=== PATIENT | female | born 1940 | race Caucasian/White ===

== ENCOUNTER 2019-12-27 19:57 | Emergency (ER) | payer MEDICARE, OTHER, SELFPAY ==
[2019-12-27 19:59] VITALS: BP 228/80; BP 234/63; PULSE 63; PULSE 96; RESP 18; TEMP 36.4; O2SAT 96; O2SAT 99; BMI 28.1
--- NOTE | 2019-12-27 20:25 | PC.NURSE ---
CALL PLACED TO PATIENT'S SON ALEX TO OBTAIN MORE INFORMATION PATIENT IS NOT ABLE TO PROVIDE MUCH INFORMATION. LEFT MESSAGE.
--- NOTE | 2019-12-27 21:12 | ED_ITS ---
HPI - General Adult General Chief complaint: General Medical <NUBIA Franco - Last Filed: 12/28/19 00:59> Stated complaint: INSULIN ISSUES <NUBIA Franco Last Filed: 12/28/19 00:59> Time Seen by Provider: 12/27/19 21:00 <NUBIA Franco - Last Filed: 12/28/19 00:59> Source: patient, EMS and old records reviewed <NUBIA Franco Last Filed: 12/28/19 00:59> Mode of arrival: EMS <NUBIA Franco Last Filed: 12/28/19 00:59> Limitations: other ( very poor historian, confused) <NUBIA Franco Last Filed: 12/28/19 00:59> History of Present Illness HPI narrative: patient is a 79-year-old female with a past medical history of CVA, hypertension, hyperlipidemia, diabetes presents via EMS but is unsure of why she is here. she states she was just sitting around her house and she was bored, she does not remember calling 911 or why she called 911, she just said that the vortex operator made her come to the emergency room. She states she lives with her and she takes care of him because he has dementia. She claims to take her medications on a regular daily basis. Clearly she is confused and a very poor historian, she gave the nurses different stories about not taking her insulin her blood pressure medication. <NUBIA Franco Last Filed: 12/28/19 00:59> Related Data Home medications: Home Medications Medication Instructions Recorded Confirmed amlodipine 5 mg PO DAILY 12/27/19 12/27/19 atorvastatin 40 mg PO BEDTIME 12/27/19 12/27/19 clonidine 1 patch TOPICAL QWEEK 12/27/19 12/27/19 clopidogrel 75 mg PO DAILY 12/27/19 12/27/19 insulin degludec [Tresiba 45 unit SUBCUT BID 12/27/19 12/27/19 FlexTouch U-200] losartan 100 mg PO DAILY 12/27/19 12/27/19 methotrexate sodium PO 12/27/19 propranolol 120 mg PO BID 12/27/19 12/27/19 <NUBIA Franco - Last Filed: 12/28/19 00:59> Allergies/adverse reactions: Allergies Allergy/AdvReac Type Severity Reaction Status Date / Time No Known Allergies Allergy Unverified 11/19/19 16:50 [No Known Allergies*] <NUBIA Franco - Last Filed: 12/28/19 00:59> Review of Systems Review of Systems: Yes all other systems are reviewed and are negative <NUBIA Franco - Last Filed: 12/28/19 00:59> [facility] Past Medical History Attestation statement: The following information was validated with the patient. <NUBIA Franco - Last Filed: 12/28/19 00:59> Medical History: Medical History (Updated 12/28/19 @ 00:25 by NUBIA Franco) CVA (cerebral vascular accident) Diabetes Hypertension <NUBIA Franco - Last Filed: 12/28/19 00:59> Social History Social History: Social History Alcohol intake: never Smoking Status: Never smoker Use of substances other than those prescribed or required for medical reasons: No Advance Directives: No Advance Directives Information Provided: Yes <NUBIA Franco - Last Filed: 12/28/19 00:59> Physical Exam Vital Signs: Vital Signs: Vital Signs Temp Pulse Resp BP Pulse Ox 12/28/19 06:00 61 16 95 12/28/19 04:54 98.0 F 64 16 207/52 H 96 12/28/19 03:13 63 20 212/55 H 96 12/28/19 02:00 97.9 F 63 20 231/56 H 96 12/27/19 23:12 61 240/66 H 12/27/19 22:33 97.6 F 61 12 240/73 H 95 12/27/19 19:59 97.5 F 96 18 234/63 H 96 Body Mass Index 28.1 <NUBIA Franco - Last Filed: 12/28/19 00:59> Vital Signs: Vital Signs Temp Pulse Resp BP Pulse Ox 12/28/19 06:00 61 16 95 12/28/19 04:54 98.0 F 64 16 207/52 H 96 12/28/19 03:13 63 20 212/55 H 96 12/28/19 02:00 97.9 F 63 20 231/56 H 96 12/27/19 23:12 61 240/66 H 12/27/19 22:33 97.6 F 61 12 240/73 H 95 12/27/19 19:59 97.5 F 96 18 234/63 H 96 Body Mass Index 28.1 <Jaylyn Lehman DO - Last Filed: 12/28/19 07:22> Const: General: cooperative, healthy appearing, comfortable and no acute distress <NUBIA Franco - Last Filed: 12/28/19 00:59> Nutritional Appearance: obese <NUBIA Franco - Last Filed: 12/28/19 00:59> HENMT: Head: Yes normal to inspection <NUBIA Franco - Last Filed: 12/28/19 00:59> Ears: hearing grossly normal bilaterally <NUBIA Franco - Last Filed: 12/28/19 00:59> General nose exam: Normal external nose present <NUBIA Franco - Last Filed: 12/28/19 00:59> Face and sinus: Yes normal facial exam <NUBIA Franco - Last Filed: 12/28/19 00:59> Eyes: General: appearance normal, both eyes and all related structures <NUBIA Franco - Last Filed: 12/28/19 00:59> Pupils: Equal, round and reactive pupils present <NUBIA Franco - Last Filed: 12/28/19 00:59> Neck: Neck: Yes normal visual inspection, Yes full ROM and Yes supple <NUBIA Franco - Last Filed: 12/28/19 00:59> Resp: Effort & Inspection: normal respiratory effort and able to speak in complete sentences <NUBIA Franco - Last Filed: 12/28/19 00:59> Auscultation: clear to auscultation bilaterally, no crackles, no rales, no rhonchi and no wheezes <NUBIA Franco - Last Filed: 12/28/19 00:59> Cardio: Rate: regular rate <NUBIA Franco - Last Filed: 12/28/19 00:59> Rhythm: regular rhythm <NUBIA Franco - Last Filed: 12/28/19 00:59> Heart sounds: S1 normal heart sound present and S2 normal heart sound present <NUBIA Franco - Last Filed: 12/28/19 00:59> GI: Inspection: Yes normal to inspection <NUBIA Franco - Last Filed: 12/28/19 00:59> Palpation (GI): Soft to palpation and nontender <NBUIA Franco - Last Filed: 12/28/19 00:59> Auscultation: normal bowel sounds <NUBIA Franco - Last Filed: 12/28/19 00:59> Skin: General skin exam: no rashes or lesions noted <NUBIA Franco - Last Filed: 12/28/19 00:59> Neuro: Cranial nerves: Yes Equal, round and reactive pupils present <Skylar tonyNUBIA Hancock - Last Filed: 12/28/19 00:59> Extrem: General: Yes normal to inspection and Yes no pedal edema <NUBIA Franco - Last Filed: 12/28/19 00:59> Course Course Course Narrative: 79-year-old female with a past medical history of CVA, diabetes, hypertension, hyperlipidemia presents via EMS after calling 911 but not remembering why. She is a very poor historian but has no physical complaints, she only states she is hungry. her blood pressure is elevated in the 230 systolic range, her point of care is in the mid 300s. nursing staff spoke with the sons patient, James, who states his mother has been refusing care for the past 3 weeks from there daily nurse visit and he believes she does need placement as the only people live in the home are her and her who has severe dementia. The healthcare proxy is his sister Sienna Tillman [phone]. Will get basic labs and put in referral. BNP elevated, giving 40mg lasix, also gave home dose 5mg amlodipine 1am sign out to Dr Morin <NUBIA Franco - Last Filed: 12/28/19 00:59> Medical Decision Making Lab Data Result diagrams: : 12/27/19 21:59 12/27/19 21:59 <NUBIA Franco - Last Filed: 12/28/19 00:59> Labs: Lab Results 12/27/19 12/27/19 12/27/19 Range/Units 21:59 21:59 21:59 WBC 10.5 (4.8-10.8) X10*3/uL RBC 4.56 (4.20-5.50) X10*6/uL Hgb 12.8 (12.0-16.0) g/dl Hct 40.6 (37-47) % MCV 89.0 (80-98) fL MCH 28.1 (27.0-33.0) pg MCHC 31.5 (31.0-35.0) g/dl RDW 14.6 (11.0-16.0) % Plt Count 264 (160-400) X10*3/uL MPV 10.2 (9.4-12.3) fL Immature Gran % (Auto) 0.4 (0.0-0.4) % Neut % (Auto) 75.7 H (45-73) % Lymph % (Auto) 10.8 L (20-40) % Oliver % (Auto) 9.7 (2-11) % Eos % (Auto) 2.9 (0-4) % Baso % (Auto) 0.5 (0-2) % Lymph # (Auto) 1.1 L (1.2-4.9) X10*3/uL Oliver # (Auto) 1.0 (0.1-1.2) X10*3/uL Eos # (Auto) 0.3 (0.0-0.4) X10*3/uL Baso # (Auto) 0.1 (0.0-0.2) X10*3/uL Abs Immat Gran (auto) 0.04 H (0.00-0.03) X10*3/uL Absolute Neuts (auto) 7.9 (2.0-8.3) X10*3/uL Absolute Nucleated RBC 0.000 (0.0-0.012) X10*3/uL Nucleated RBC % (auto) 0.0 (0.0-0.2) /100WBC Sodium 137 (135-145) mmol/L Potassium 4.7 (3.3-5.1) mmol/l Chloride 98 (96-108) mmol/L Carbon Dioxide 31 H (22-29) mmol/L Anion Gap 13 (12-20) BUN 20 H (9-16) mg/dL Creatinine 1.53 H (0.5-1.4) mg/dL Estim Creat Clear Calc 33.2 Estimated GFR 33 POC Glucose (60-115) mg/dL Random Glucose 326 H (60-115) mg/dL Calcium 9.0 (8.4-10.2) mg/dL B-Natriuretic Peptide (<100) pg/mL Urine Color Urine Appearance Urine pH (5.0-8.0) Ur Specific [place] (1.005-1.025) Urine Protein (NEG-TRACE) MG/DL Urine Glucose (UA) (NEG) MG/DL Urine Ketones (NEG) MG/DL Urine Blood (NEG) Urine Nitrite (NEG) Ur Leukocyte Esterase (NEG) Urine RBC (0) /HPF Urine WBC (0-4) /HPF Ur Squamous Epith Cells /LPF Urine Bacteria /LPF Acetone, Qual Negative (Negative) 12/27/19 12/27/19 12/28/19 Range/Units 21:59 22:46 01:44 WBC (4.8-10.8) X10*3/uL RBC (4.20-5.50) X10*6/uL Hgb (12.0-16.0) g/dl Hct (37-47) % MCV (80-98) fL MCH (27.0-33.0) pg MCHC (31.0-35.0) g/dl RDW (11.0-16.0) % Plt Count (160-400) X10*3/uL MPV (9.4-12.3) fL Immature Gran % (Auto) (0.0-0.4) % Neut % (Auto) (45-73) % Lymph % (Auto) (20-40) % Oliver % (Auto) (2-11) % Eos % (Auto) (0-4) % Baso % (Auto) (0-2) % Lymph # (Auto) (1.2-4.9) X10*3/uL Oliver # (Auto) (0.1-1.2) X10*3/uL Eos # (Auto) (0.0-0.4) X10*3/uL Baso # (Auto) (0.0-0.2) X10*3/uL Abs Immat Gran (auto) (0.00-0.03) X10*3/uL Absolute Neuts (auto) (2.0-8.3) X10*3/uL Absolute Nucleated RBC (0.0-0.012) X10*3/uL Nucleated RBC % (auto) (0.0-0.2) /100WBC Sodium (135-145) mmol/L Potassium (3.3-5.1) mmol/l Chloride (96-108) mmol/L Carbon Dioxide (22-29) mmol/L Anion Gap (12-20) BUN (9-16) mg/dL Creatinine (0.5-1.4) mg/dL Estim Creat Clear Calc Estimated GFR POC Glucose 295 H (60-115) mg/dL Random Glucose (60-115) mg/dL Calcium (8.4-10.2) mg/dL B-Natriuretic Peptide 1264 H (<100) pg/mL Urine Color STRAW Urine Appearance CLOUDY Urine pH 7.5 (5.0-8.0) Ur Specific [place] 1.020 (1.005-1.025) Urine Protein 2+ H (NEG-TRACE) MG/DL Urine Glucose (UA) >=1000 H (NEG) MG/DL Urine Ketones NEG (NEG) MG/DL Urine Blood 1+ H (NEG) Urine Nitrite NEG (NEG) Ur Leukocyte Esterase 2+ H (NEG) Urine RBC 1-4 (0) /HPF Urine WBC TNTC H (0-4) /HPF Ur Squamous Epith Cells 1+ /LPF Urine Bacteria TRACE /LPF Acetone, Qual (Negative) <NUBIA Franco - Last Filed: 12/28/19 00:59> Lab Results 12/27/19 12/27/19 12/27/19 Range/Units 21:59 21:59 21:59 WBC 10.5 (4.8-10.8) X10*3/uL RBC 4.56 (4.20-5.50) X10*6/uL Hgb 12.8 (12.0-16.0) g/dl Hct 40.6 (37-47) % MCV 89.0 (80-98) fL MCH 28.1 (27.0-33.0) pg MCHC 31.5 (31.0-35.0) g/dl RDW 14.6 (11.0-16.0) % Plt Count 264 (160-400) X10*3/uL MPV 10.2 (9.4-12.3) fL Immature Gran % (Auto) 0.4 (0.0-0.4) % Neut % (Auto) 75.7 H (45-73) % Lymph % (Auto) 10.8 L (20-40) % Oliver % (Auto) 9.7 (2-11) % Eos % (Auto) 2.9 (0-4) % Baso % (Auto) 0.5 (0-2) % Lymph # (Auto) 1.1 L (1.2-4.9) X10*3/uL [place] # (Auto) 1.0 (0.1-1.2) X10*3/uL Eos # (Auto) 0.3 (0.0-0.4) X10*3/uL Baso # (Auto) 0.1 (0.0-0.2) X10*3/uL Abs Immat Gran (auto) 0.04 H (0.00-0.03) X10*3/uL Absolute Neuts (auto) 7.9 (2.0-8.3) X10*3/uL Absolute Nucleated RBC 0.000 (0.0-0.012) X10*3/uL Nucleated RBC % (auto) 0.0 (0.0-0.2) /100WBC Sodium 137 (135-145) mmol/L Potassium 4.7 (3.3-5.1) mmol/l Chloride 98 (96-108) mmol/L Carbon Dioxide 31 H (22-29) mmol/L Anion Gap 13 (12-20) BUN 20 H (9-16) mg/dL Creatinine 1.53 H (0.5-1.4) mg/dL Estim Creat Clear Calc 33.2 Estimated GFR 33 POC Glucose (60-115) mg/dL Random Glucose 326 H (60-115) mg/dL Calcium 9.0 (8.4-10.2) mg/dL B-Natriuretic Peptide (<100) pg/mL Urine Color Urine Appearance Urine pH (5.0-8.0) Ur Specific [place] (1.005-1.025) Urine Protein (NEG-TRACE) MG/DL Urine Glucose (UA) (NEG) MG/DL Urine Ketones (NEG) MG/DL Urine Blood (NEG) Urine Nitrite (NEG) Ur Leukocyte Esterase (NEG) Urine RBC (0) /HPF Urine WBC (0-4) /HPF Ur Squamous Epith Cells /LPF Urine Bacteria /LPF Acetone, Qual Negative (Negative) 12/27/19 12/27/19 12/28/19 Range/Units 21:59 22:46 01:44 WBC (4.8-10.8) X10*3/uL RBC (4.20-5.50) X10*6/uL Hgb (12.0-16.0) g/dl Hct (37-47) % MCV (80-98) fL MCH (27.0-33.0) pg MCHC (31.0-35.0) g/dl RDW (11.0-16.0) % Plt Count (160-400) X10*3/uL MPV (9.4-12.3) fL Immature Gran % (Auto) (0.0-0.4) % Neut % (Auto) (45-73) % Lymph % (Auto) (20-40) % [place] % (Auto) (2-11) % Eos % (Auto) (0-4) % Baso % (Auto) (0-2) % Lymph # (Auto) (1.2-4.9) X10*3/uL [place] # (Auto) (0.1-1.2) X10*3/uL Eos # (Auto) (0.0-0.4) X10*3/uL Baso # (Auto) (0.0-0.2) X10*3/uL Abs Immat Gran (auto) (0.00-0.03) X10*3/uL Absolute Neuts (auto) (2.0-8.3) X10*3/uL Absolute Nucleated RBC (0.0-0.012) X10*3/uL Nucleated RBC % (auto) (0.0-0.2) /100WBC Sodium (135-145) mmol/L Potassium (3.3-5.1) mmol/l Chloride (96-108) mmol/L Carbon Dioxide (22-29) mmol/L Anion Gap (12-20) BUN (9-16) mg/dL Creatinine (0.5-1.4) mg/dL Estim Creat Clear Calc Estimated GFR POC Glucose 295 H (60-115) mg/dL Random Glucose (60-115) mg/dL Calcium (8.4-10.2) mg/dL B-Natriuretic Peptide 1264 H (<100) pg/mL Urine Color STRAW Urine Appearance CLOUDY Urine pH 7.5 (5.0-8.0) Ur Specific [place] 1.020 (1.005-1.025) Urine Protein 2+ H (NEG-TRACE) MG/DL Urine Glucose (UA) >=1000 H (NEG) MG/DL Urine Ketones NEG (NEG) MG/DL Urine Blood 1+ H (NEG) Urine Nitrite NEG (NEG) Ur Leukocyte Esterase 2+ H (NEG) Urine RBC 1-4 (0) /HPF Urine WBC TNTC H (0-4) /HPF Ur Squamous Epith Cells 1+ /LPF Urine Bacteria TRACE /LPF Acetone, Qual (Negative) <Jaylyn Lehman DO - Last Filed: 12/28/19 07:22> Discharge Plan Discharge Clinical Impression: Memory loss, At risk for medication noncompliance Hypertension Qualifiers: Hypertension type: essential hypertension Qualified Code(s): I10 - Essential (primary) hypertension Diabetes Qualifiers: Diabetes mellitus type: type 2 Diabetes mellitus mcc insulin use: with predatory animal exterminator use Diabetes mellitus complication status: with other specified complication Qualified Code(s): E11.69 - Type 2 diabetes mellitus with other specified complication CHF exacerbation Qualifiers: Heart failure type: unspecified Qualified Code(s): I50.9 - Heart failure, unspecified <NUBIA Franco - Last Filed: 12/28/19 00:59> Prescriptions: No Action atorvastatin 40 mg tablet 40 mg PO BEDTIME RF: 0 clopidogrel 75 mg tablet 75 mg PO DAILY RF: 0 amlodipine 5 mg tablet 5 mg PO DAILY RF: 0 methotrexate sodium 2.5 mg tablet PO RF: 0 clonidine 0.3 mg/24 hr patch weekly 1 patch topical QWEEK RF: 0 propranolol 120 mg capsule,extended release 24 hr 120 mg PO BID RF: 0 losartan 100 mg tablet 100 mg PO DAILY RF: 0 Tresiba FlexTouch U-200 200 unit/mL (3 mL) insulin pen 45 unit subcut BID RF: 0 <NUBIA Franco - Last Filed: 12/28/19 00:59>
--- NOTE | 2019-12-27 21:19 | PC.NURSE ---
SPOKE WITH SON ALEX (HOME # [phone], CELL # [phone]). THIS IS THE THIRD OR FOURTH TIME THAT THIS PT HAS DECLINED, KNOWN HX OF DEMENTIA AMONG FAMILY. LIVES WITH HER , ALSO HAS DEMENTIA. NO LIVE-IN ASSISTANCE, VISITING NURSING WAS REPORTEDLY SET UP BUT THE PT CONSISTENTLY TURNS THEM AWAY AT THE DOOR. THEY HAVE NOT BEEN TENDED TO BY A VISITING NURSE IN 3 WKS. SISTER NICOLE IS HEALTH CARE PROXY [phone]. PT AMBULATES WITH WALKER AT HOME QUITE STEADILY.
--- NOTE | 2019-12-27 21:21 | ECG_ITS ---
Test Reason : WEAKNESS Blood Pressure : / mmHG Vent. Rate : 061 BPM Atrial Rate : 061 BPM P-R Int : 210 ms QRS Dur : 096 ms QT Int : 466 ms P-R-T Axes : 056 012 030 degrees QTc Int : 469 ms Sinus rhythm with 1st degree A-V block Possible Left atrial enlargement Left ventricular hypertrophy with repolarization abnormality Nonspecific ST abnormality Abnormal ECG When compared with ECG of 29-MAY-2019 14:29, [place] interval has increased ST less depressed in Inferior leads Referred By: Mar Delong Electronically Signed By:CORAZON OLSEN MD
[2019-12-27 22:04] LABS: Basophils Absolute Auto 0.1 X10*3/uL (0.0-0.2); Basophils Percent Auto 0.5 % (0-2); Eosinophils Absolute Auto 0.3 X10*3/uL (0.0-0.4); Eosinophils Percent Auto 2.9 % (0-4); Hematocrit 40.6 % (37-47); Hemoglobin 12.8 g/dl (12.0-16.0); Imm Gran Abs Auto 0.04 X10*3/uL (0.00-0.03); Imm Gran Pct Auto 0.4 % (0.0-0.4); Lymphocytes Absolute Auto 1.1 X10*3/uL (1.2-4.9); Lymphocytes Percent Auto 10.8 % (20-40); MANUAL DIFF FLAG NO; Mean Corpuscular HGB Conc 31.5 g/dl (31.0-35.0); Mean Corpuscular Hemoglobin 28.1 pg (27.0-33.0); Mean Platelet Volume 10.2 fL (9.4-12.3); Monocytes Percent Auto 9.7 % (2-11); Neutrophils Absolute Auto 7.9 X10*3/uL (2.0-8.3); Neutrophils Percent Auto 75.7 % (45-73); Platelet Count 264 X10*3/uL (160-400); Red Blood Count 4.56 X10*6/uL (4.20-5.50); Red Cell Distribution Width 14.6 % (11.0-16.0); White Blood Count 10.5 X10*3/uL (4.8-10.8)
[2019-12-27 22:20] LABS: Acetone, serum QL Negative (Negative)
[2019-12-27 22:25] LABS: Anion Gap 13 (12-20); Blood Urea Nitrogen 20 mg/dL (9-16); Carbon Dioxide 31 mmol/L (22-29); Chloride 98 mmol/L (96-108); Creatinine Clr Calc Pharmacy 33.2; Estimated Glomerular Filt Rate 33; Glucose Random 326 mg/dL (60-115); Potassium 4.7 mmol/l (3.3-5.1); Sodium 137 mmol/L (135-145)
[2019-12-27 22:33] VITALS: BP 240/73; PULSE 61; RESP 12; TEMP 36.4; O2SAT 95
[2019-12-27 22:55] LABS: Glucose, Whole Blood 295 mg/dL (60-115)
--- NOTE | 2019-12-27 22:56 | PC.NURSE ---
CALL MADE DOWN TO LAB FOR ADD-ON BNP
[2019-12-27 23:12] VITALS: BP 240/66; PULSE 61
[2019-12-27] MEDS: amLODIPine Besylate 5 MG TABLET PO (23:12)
[2019-12-27 23:27] LABS: B Type Natriuretic Peptide 1264 pg/mL (<100)
[2019-12-28] VITALS (7 sets, daily range): BP systolic 170–244; BP diastolic 52–71; PULSE 61–65; RESP 16–20; TEMP 36.5–36.7; O2SAT 95–96
[2019-12-28] MEDS: Furosemide 40 MG/4 ML VIAL IVPUSH (01:23)
[2019-12-28 01:50] LABS: Glucose Urine UA >=1000 MG/DL (NEG); Leukocyte Esterase Urine 2+ (NEG); Nitrite Urine NEG (NEG); PH 7.5 (5.0-8.0); Urine Blood 1+ (NEG); Urine Ketones NEG (NEG); Urine Protein 2+ MG/DL (NEG-TRACE)
[2019-12-28 01:51] LABS: Appearance Urine CLOUDY; Color Urine STRAW
[2019-12-28 01:58] LABS: WBC Urine TNTC /HPF (0-4)
[2019-12-28 01:59] LABS: Bacteria Urine TRACE /LPF; Squamous Epithelial Cell Urine 1+ /LPF
--- NOTE | 2019-12-28 05:15 | PC.NURSE ---
PROVIDER MD BELTRE IS AWARE OF THE BLOOD PRESSURE, NO FURTHER ORDERS AT THIS TIME.
--- NOTE | 2019-12-28 07:15 | PC.NURSE ---
PT SITTING UP AT EDGE OF BED EATING BREAKFAST. NO SOB/WENDY NOTED SPEAKS IN FULL SENTENCES.
--- NOTE | 2019-12-28 07:22 | XR_ITS ---
EXAMINATION: XR CHEST CLINICAL INFORMATION: Evaluate for edema. COMPARISON: Chest radiographs 05/29/2019 TECHNIQUE: Portable upright AP view of the chest was obtained. FINDINGS: The lungs are clear. There is no pneumothorax, vascular congestion, edema, or effusion. The heart is normal in size. The hilar and mediastinal contours are normal. No visible acute bony abnormality. XR/XR chest 1V IMPRESSION: No acute intrathoracic disease.
[2019-12-28 07:24] LABS: Glucose, Whole Blood 326 mg/dL (60-115)
[2019-12-28] MEDS: cefTRIAXone sodium 1 GM in 0.9 % Sodium Chloride 50 ML IV (08:11)
--- NOTE | 2019-12-28 10:55 | PC.NURSE ---
physical therapy (bruno) with pt at bedside.
--- NOTE | 2019-12-28 11:08 | PC.NURSE ---
PT AMB (I) GAIT STEADY WITH CANE AND PHYSICAL THERAPY IN [place].
--- NOTE | 2019-12-28 12:24 | MHC.CM.ED ---
Received case management consult overnight. Patient came to ER with insulin issues . Patient's son states patient provides care for her who has dementia. Patient has fallen at home and does not take her medication. Patient also has refused for help to come into the home. Work up essentially negative. Physical therapy eval completed. Home therapy is recommended by physical therapy. Spoke with patient's daughter/HCP, Sienna via telephone at [phone]. Explained patient would not qualify for short term rehab because she passed physical therapy. Private pay nursing home was offered. Sienna is not interested at this time. Patient's son, James lives local. Sienna lives in [place]. Sienna requested t/w speak to James. Spoke with James via telephone at [phone]. Patient has a home health aide from [facility]. Patient has not had nursing home in the past. James agreeable to referral to [facility]. Referral made via allscripts. James will be in the ER at 1pm to pick patient up. Patient, Dr Lehman and Gregg WOOTEN aware. Continue to monitor for d/c needs.
--- NOTE | 2019-12-28 13:04 | MHC.CM.ED ---
[facility] UNABLE TO ACCEPT PATIENT. REFERRAL WAS BROADCASTED. [facility] HAS ACCEPTED PT.
== END 2019-12-28 13:21 | disposition home or self-care (01) ==
PROVIDERS: Physician Assistant; Emergency Provider Emergency Medicine; PCP Nurse Practitioner Family
DX: R41.3 Other amnesia (principal); I10 Essential (primary) hypertension; E11.69 Type 2 diabetes mellitus with other specified complication; I50.9 Heart failure, unspecified; Z91.14 Patient's other noncompliance with medication regimen; Z79.899 Other long term (current) drug therapy; Z79.4 Long term (current) use of insulin
CPT/HCPCS: 36415; 71045; 80048; 81001; 82009; 82947; 83880; 85025; 87086; 93005; 96365; 96375; 97161; 99284; 99285; J1940

== ENCOUNTER 2020-01-19 11:03 | Emergency (ER) | payer MEDICARE, SELFPAY ==
[2020-01-19 11:11] VITALS: BP 208/80; PULSE 53; RESP 18; TEMP 32.7; O2SAT 94; BMI 28.3
--- NOTE | 2020-01-19 11:25 | ED_ITS ---
HPI - Altered Mental Status General Chief Complaint: General Medical Stated Complaint: UNRESPONSIVE W/LOW BS (40'S),BS 107 NOW Time Seen by Provider: 01/19/20 11:24 Source: family Mode of arrival: EMS Limitations: altered mental status History of Present Illness HPI narrative: Found unresponsive at home with glu of 40 and hypothermic. complaint: altered mental status Onset (ago): hour(s) Timing confirmed by: spouse Severity: severe Associated symptoms: syncope and weakness Treatments prior to arrival: glucose and IV fluid Related Data Home Medications Medication Instructions Recorded Confirmed amlodipine 5 mg PO DAILY 12/27/19 12/27/19 atorvastatin 40 mg PO BEDTIME 12/27/19 12/27/19 clonidine 1 patch TOPICAL QWEEK 12/27/19 12/27/19 clopidogrel 75 mg PO DAILY 12/27/19 12/27/19 insulin degludec [Tresiba 45 unit SUBCUT BID 12/27/19 12/27/19 FlexTouch U-200] losartan 100 mg PO DAILY 12/27/19 12/27/19 methotrexate sodium PO 12/27/19 propranolol 120 mg PO BID 12/27/19 12/27/19 Previous Rx's Medication Instructions Recorded cefuroxime axetil 250 mg PO BID 7 Days #14 tab 12/28/19 Allergies Allergy/AdvReac Type Severity Reaction Status Date / Time No Known Allergies Allergy Verified 01/19/20 11:43 [No Known Allergies*] Review of Systems Constitutional: Constitutional: Reports no additional constitutional complaints Eyes: Eyes: Reports no additional eye complaints ENT: Denies dizziness Cardiovascular: Cardiovascular: Reports no additional cardiovascular comp laints Respiratory: Respiratory: Reports as per HPI Gastrointestinal: Gastrointestinal: Reports no additional gastrointestinal complaints Genitourinary: Genitourinary: Reports no additional female genitourinary complaints Musculoskeletal: Musculoskeletal: Reports no additional musculoskeletal complaints Integumentary/Breasts: Skin/Breast: Denies rash Neurologic: Reports system reviewed and no additional complaints, except as documented, Denies dizziness and Denies Sensory deficit (Neuro) Psychiatric: Psychiatric: Denies anxiety [facility] Past Medical History Medical History (Updated 01/19/20 @ 15:23 by Jeff Weiss MD) CVA (cerebral vascular accident) Diabetes Hypertension Social History Social History Alcohol intake: never Smoking Status: Former smoker Use of substances other than those prescribed or required for medical reasons: No Advance Directives: No Advance Directives Information Provided: Yes Physical Exam Vital Signs: Vital Signs: Last Vital Signs Temp 94.5 F L 01/19/20 12:56 Pulse 57 01/19/20 12:56 Resp 17 01/19/20 12:56 BP 231/43 H 01/19/20 12:56 Pulse Ox 96 01/19/20 12:56 Body Mass Index 28.3 Const: Other: elderly female now awake Nutritional Appearance: average body habitus Orientation/consciousness: oriented to person Limitations: altered mental status HENMT: Head: Yes normal to inspection Ears: external ears normal General nose exam: Normal external nose present Mouth: Normal oral and palatal mucosa present and oropharynx normal Throat: Yes posterior oropharynx normal Eyes: General: appearance normal, both eyes and all related structures Neck: Other: supple Neck: Yes normal visual inspection Chest: Chest palpation & inspection: normal inspection of the chest Resp: Auscultation: clear to auscultation bilaterally Cardio: Jugular venous distension: no JVD Rate: regular rate Rhythm: reg ular rhythm Heart sounds: S1 normal heart sound present and S2 normal heart sound present GI: Inspection: Yes normal to inspection Palpation (GI): Soft to palpation, nontender and No hepatosplenomegaly present Auscultation: normal bowel sounds : General: Yes no CVA tenderness Back/Spine/Pelvis: Back: no CVA tenderness Skin: General skin exam: no rashes or lesions noted Neuro: General: oriented to person Cranial nerves: Yes CN's II-XII intact bilaterally Motor exam (neuro): 5/5 motor strength present throughout Sensory Exam: No Sensory deficit (Neuro) Extrem: General: Yes normal to inspection Psych: Appearance: grossly normal Course Course Course Narrative: patient ate, more awake, feels good, able to ambulate MDM - Altered Mental Status MDM Narrative Medical decision making narrative: weakness, loss of consciousness, hypothermia all seem related to severe hypoglycemia will dc home Lab Data Result diagrams: 01/19/20 12:06 01/19/20 12:07 Labs: Lab Results 01/19/20 01/19/20 01/19/20 Range/Units 11:10 12:05 12:06 WBC 12.2 H (4.8-10.8) X10*3/uL RBC 5.52 H D (4.20-5.50) X10*6/uL Hgb 15.6 D (12.0-16.0) g/dl Hct 48.7 H (37-47) % MCV 88.2 (80-98) fL MCH 28.3 (27.0-33.0) pg MCHC 32.0 (31.0-35.0) g/dl RDW 14.5 (11.0-16.0) % Plt Count 350 D (160-400) X10*3/uL MPV 9.2 L (9.4-12.3) fL Immature Gran % (Auto) 0.3 (0.0-0.4) % Neut % (Auto) 92.7 H (45-73) % Lymph % (Auto) 5.3 L (20-40) % [place] % (Auto) 1.1 L (2-11) % Eos % (Auto) 0.3 (0-4) % Baso % (Auto) 0.3 (0-2) % Lymph # (Auto) 0.6 L (1.2-4.9) X10*3/uL [place] # (Auto) 0.1 (0.1-1.2) X10*3/uL Eos # (Auto) 0.0 (0.0-0.4) X10*3/uL Baso # (Auto) 0.0 (0.0-0.2) X10*3/uL Abs Immat Gran (auto) 0.04 H (0.00-0.03) X10*3/uL Absolute Neuts (auto) 11.3 H (2.0-8.3) X10*3/uL Absolute Nucleated RBC 0.000 (0.0-0.012) X10*3/uL Nucleated RBC % (auto) 0.0 (0.0-0.2) /100WBC Smear Tech's Comments VERIFIED Sodium (135-145) mmol/L Potassium (3.3-5.1) mmol/l Chloride (96-108) mmol/L Carbon Dioxide (22-29) mmol/L Anion Gap (12-20) BUN (9-16) mg/dL Creatinine (0.5-1.4) mg/dL Estim Creat Clear Calc Estimated GFR POC Glucose 88 (60-115) mg/dL Random Glucose (60-115) mg/dL Calcium (8.4-10.2) mg/dL Total Bilirubin (0.0-1.0) mg/dL Direct Bilirubin (0.0-0.5) mg/dL AST (5-31) U/L ALT (0-31) U/L Alkaline Phosphatase (39-117) U/L Troponin I High Sens (<3.5-17.0) ng/L Total Protein (6.5-8.0) g/dL Albumin (3.5-5.0) g/dL Urine Color Urine Appearance Urine pH (5.0-8.0) Ur Specific Needles (1.005-1.025) Urine Protein (NEG-TRACE) MG/DL Urine Glucose (UA) (NEG) MG/DL Urine Ketones (NEG) MG/DL Urine Blood (NEG) Urine Nitrite (NEG) Ur Leukocyte Esterase (NEG) Urine RBC (0) /HPF Urine WBC (0-4) /HPF Ur Squamous Epith Cells /LPF Urine Bacteria /LPF Coronavirus (PCR) NEGATIVE (Negative) Influenza Type A (PCR) NEGATIVE (Negative) Influenza Type B (PCR) NEGATIVE (Negative) RSV RNA Qual (PCR) NEGATIVE (Negative) 01/19/20 01/19/20 01/19/20 Range/Units 12:07 12:07 12:30 WBC (4.8-10.8) X10*3/uL RBC (4.20-5.50) X10*6/uL Hgb (12.0-16.0) g/dl Hct (37-47) % MCV (80-98) fL MCH (27.0-33.0) pg MCHC (31.0-35.0) g/dl RDW (11.0-16.0) % Plt Count (160-400) X10*3/uL MPV (9.4-12.3) fL Immature Gran % (Auto) (0.0-0.4) % Neut % (Auto) (45-73) % Lymph % (Auto) (20-40) % [place] % (Auto) (2-11) % Eos % (Auto) (0-4) % Baso % (Auto) (0-2) % Lymph # (Auto) (1.2-4.9) X10*3/uL [place] # (Auto) (0.1-1.2) X10*3/uL Eos # (Auto) (0.0-0.4) X10*3/uL Baso # (Auto) (0.0-0.2) X10*3/uL Abs Immat Gran (auto) (0.00-0.03) X10*3/uL Absolute Neuts (auto) (2.0-8.3) X10*3/uL Absolute Nucleated RBC (0.0-0.012) X10*3/uL Nucleated RBC % (auto) (0.0-0.2) /100WBC Smear Tech's Comments Sodium 138 (135-145) mmol/L Potassium 5.0 (3.3-5.1) mmol/l Chloride 97 (96-108) mmol/L Carbon Dioxide 33 H (22-29) mmol/L Anion Gap 13 (12-20) BUN 44 H D (9-16) mg/dL Creatinine 1.68 H (0.5-1.4) mg/dL Estim Creat Clear Calc 27.3 Estimated GFR 29 POC Glucose (60-115) mg/dL Random Glucose 120 H D (60-115) mg/dL Calcium 9.6 D (8.4-10.2) mg/dL Total Bilirubin 0.6 (0.0-1.0) mg/dL Direct Bilirubin 0.3 (0.0-0.5) mg/dL AST 27 (5-31) U/L ALT 24 (0-31) U/L Alkaline Phosphatase 74 (39-117) U/L Troponin I High Sens 10.6 (<3.5-17.0) ng/L Total Protein 8.3 H (6.5-8.0) g/dL Albumin 3.9 (3.5-5.0) g/dL Urine Color Urine Appearance Urine pH (5.0-8.0) Ur Specific Needles (1.005-1.025) Urine Protein (NEG-TRACE) MG/DL Urine Glucose (UA) (NEG) MG/DL Urine Ketones (NEG) MG/DL Urine Blood (NEG) Urine Nitrite (NEG) Ur Leukocyte Esterase (NEG) Urine RBC (0) /HPF Urine WBC (0-4) /HPF Ur Squamous Epith Cells /LPF Urine Bacteria /LPF Coronavirus (PCR) (Negative) Influenza Type A (PCR) (Negative) Influenza Type B (PCR) (Negative) RSV RNA Qual (PCR) (Negative) 01/19/20 01/19/20 Range/Units 12:49 14:00 WBC (4.8-10.8) X10*3/uL RBC (4.20-5.50) X10*6/uL Hgb (12.0-16.0) g/dl Hct (37-47) % MCV (80-98) fL MCH (27.0-33.0) pg MCHC (31.0-35.0) g/dl RDW (11.0-16.0) % Plt Count (160-400) X10*3/uL MPV (9.4-12.3) fL Immature Gran % (Auto) (0.0-0.4) % Neut % (Auto) (45-73) % Lymph % (Auto) (20-40) % [place] % (Auto) (2-11) % Eos % (Auto) (0-4) % Baso % (Auto) (0-2) % Lymph # (Auto) (1.2-4.9) X10*3/uL [place] # (Auto) (0.1-1.2) X10*3/uL Eos # (Auto) (0.0-0.4) X10*3/uL Baso # (Auto) (0.0-0.2) X10*3/uL Abs Immat Gran (auto) (0.00-0.03) X10*3/uL Absolute Neuts (auto) (2.0-8.3) X10*3/uL Absolute Nucleated RBC (0.0-0.012) X10*3/uL Nucleated RBC % (auto) (0.0-0.2) /100WBC Smear Tech's Comments Sodium (135-145) mmol/L Potassium (3.3-5.1) mmol/l Chloride (96-108) mmol/L Carbon Dioxide (22-29) mmol/L Anion Gap (12-20) BUN (9-16) mg/dL Creatinine (0.5-1.4) mg/dL Estim Creat Clear Calc Estimated GFR POC Glucose 104 (60-115) mg/dL Random Glucose (60-115) mg/dL Calcium (8.4-10.2) mg/dL Total Bilirubin (0.0-1.0) mg/dL Direct Bilirubin (0.0-0.5) mg/dL AST (5-31) U/L ALT (0-31) U/L Alkaline Phosphatase (39-117) U/L Troponin I High Sens (<3.5-17.0) ng/L Total Protein (6.5-8.0) g/dL Albumin (3.5-5.0) g/dL Urine Color YELLOW Urine Appearance CLOUDY Urine pH 7.5 (5.0-8.0) Ur Specific Needles 1.020 (1.005-1.025) Urine Protein 3+ H (NEG-TRACE) MG/DL Urine Glucose (UA) NEG (NEG) MG/DL Urine Ketones NEG (NEG) MG/DL Urine Blood TRACE (NEG) Urine Nitrite NEG (NEG) Ur Leukocyte Esterase 1+ H (NEG) Urine RBC 0-2 (0) /HPF Urine WBC 30-49 H (0-4) /HPF Ur Squamous Epith Cells 1+ /LPF Urine Bacteria 1+ /LPF Coronavirus (PCR) (Negative) Influenza Type A (PCR) (Negative) Influenza Type B (PCR) (Negative) RSV RNA Qual (PCR) (Negative) Imaging Data Chest x-ray: Radiologist's impression: no infiltrate ECG Data ECG #1: Attestation: I personally reviewed and interpreted this ECG as follows: Interpretation: sinus rate of 50, peaked ts, no other st or twave changes Discharge Plan Discharge Clinical Impression: Hypoglycemia Diabetes Qualifiers: Diabetes mellitus type: type 2 Diabetes mellitus predatory animal exterminator insulin use: with predatory animal exterminator use Diabetes mellitus complication status: without complication Qualified Code(s): E11.9 - Type 2 diabetes mellitus without complications Prescriptions: No Action atorvastatin 40 mg tablet 40 mg PO BEDTIME RF: 0 clopidogrel 75 mg tablet 75 mg PO DAILY RF: 0 amlodipine 5 mg tablet 5 mg PO DAILY RF: 0 methotrexate sodium 2.5 mg tablet PO RF: 0 clonidine 0.3 mg/24 hr patch weekly 1 patch topical QWEEK RF: 0 propranolol 120 mg capsule,extended release 24 hr 120 mg PO BID RF: 0 losartan 100 mg tablet 100 mg PO DAILY RF: 0 Tresiba FlexTouch U-200 200 unit/mL (3 mL) insulin pen 45 unit subcut BID RF: 0 cefuroxime axetil 250 mg tablet 250 mg PO BID 7 Days Qty: 14 RF: 0 Referrals: Physician,Unknown [Primary Care Provider] - 2 days
--- NOTE | 2020-01-19 11:27 | XR_ITS ---
EXAMINATION: XR CHEST CLINICAL INFORMATION: Shortness of breath COMPARISON: 12/28/2019 TECHNIQUE: Frontal view of the chest was obtained. FINDINGS: Cardiac leads overlie the chest. The lungs are well expanded. There is no focal consolidation, edema, or effusion. Bronchial wall thickening noted. No pneumothorax. The cardiomediastinal silhouette is within normal limits. No acute osseous abnormality. XR/XR chest 1V IMPRESSION: No dense consolidation. Bronchial wall thickening can be seen with a small airways process such as asthma or atypical/viral infection.
--- NOTE | 2020-01-19 11:27 | ECG_ITS ---
Test Reason : SOB Blood Pressure : / mmHG Vent. Rate : 051 BPM Atrial Rate : 051 BPM P-R Int : 196 ms QRS Dur : 082 ms QT Int : 530 ms P-R-T Axes : 031 060 045 degrees QTc Int : 488 ms Sinus bradycardia Minimal voltage criteria for LVH, may be normal variant Nonspecific ST abnormality Abnormal ECG When compared with ECG of 27-DEC-2019 21:49, ST now depressed in Inferior leads Referred By: Jeff Weiss Electronically Signed By:CORAZON OLSEN MD
[2020-01-19 12:16] LABS: Basophils Percent Auto 0.3 % (0-2); Eosinophils Percent Auto 0.3 % (0-4); Hematocrit 48.7 % (37-47); Hemoglobin 15.6 g/dl (12.0-16.0); Imm Gran Abs Auto 0.04 X10*3/uL (0.00-0.03); Imm Gran Pct Auto 0.3 % (0.0-0.4); Lymphocytes Absolute Auto 0.6 X10*3/uL (1.2-4.9); Lymphocytes Percent Auto 5.3 % (20-40); MANUAL DIFF FLAG SCAN; Mean Corpuscular Hemoglobin 28.3 pg (27.0-33.0); Mean Corpuscular Volume 88.2 fL (80-98); Mean Platelet Volume 9.2 fL (9.4-12.3); Monocytes Absolute Auto 0.1 X10*3/uL (0.1-1.2); Monocytes Percent Auto 1.1 % (2-11); Neutrophils Absolute Auto 11.3 X10*3/uL (2.0-8.3); Neutrophils Percent Auto 92.7 % (45-73); Platelet Count 350 X10*3/uL (160-400); Red Blood Count 5.52 X10*6/uL (4.20-5.50); Red Cell Distribution Width 14.5 % (11.0-16.0); SCAN SMEAR FLAG 1; White Blood Count 12.2 X10*3/uL (4.8-10.8)
[2020-01-19 12:53] LABS: Anion Gap 13 (12-20); Blood Urea Nitrogen 44 mg/dL (9-16); Calcium 9.6 mg/dL (8.4-10.2); Carbon Dioxide 33 mmol/L (22-29); Chloride 97 mmol/L (96-108); Creatinine Clr Calc Pharmacy 27.3; Estimated Glomerular Filt Rate 29; Glucose Random 120 mg/dL (60-115); Sodium 138 mmol/L (135-145)
[2020-01-19 12:53] LABS: SLIDE REVIEW VERIFIED
[2020-01-19 12:54] LABS: Alanine Aminotransferase 24 U/L (0-31); Albumin Level 3.9 g/dL (3.5-5.0); Alkaline Phosphatase 74 U/L (39-117); Aspartate Amino Transferase 27 U/L (5-31); Bilirubin Direct 0.3 mg/dL (0.0-0.5); Bilirubin Total 0.6 mg/dL (0.0-1.0); Total Protein 8.3 g/dL (6.5-8.0)
[2020-01-19 12:56] VITALS: BP 231/43; PULSE 57; RESP 17; TEMP 34.7; O2SAT 96
[2020-01-19 13:06] LABS: Glucose, Whole Blood 104 mg/dL (60-115)
[2020-01-19 13:09] LABS: Influenza A PCR NEGATIVE (Negative); Influenza B PCR NEGATIVE (Negative); Resp Syncy Virus RNA Qual PCR NEGATIVE (Negative); SARS COV2 PCR INHOUSE NEGATIVE (Negative)
[2020-01-19 13:21] LABS: Troponin-I High Sensitivity 10.6 ng/L (<3.5-17.0)
[2020-01-19 13:49] LABS: Glucose, Whole Blood 88 mg/dL (60-115)
[2020-01-19] MEDS: 0.9 % Sodium Chloride 500 ML 999 ML IVCONT (14:15)
[2020-01-19 14:33] LABS: Glucose Urine UA NEG (NEG); Leukocyte Esterase Urine 1+ (NEG); Nitrite Urine NEG (NEG); PH 7.5 (5.0-8.0); Urine Blood TRACE (NEG); Urine Ketones NEG (NEG); Urine Protein 3+ MG/DL (NEG-TRACE)
[2020-01-19 14:35] LABS: Appearance Urine CLOUDY; Color Urine YELLOW
--- NOTE | 2020-01-19 14:58 | PC.NURSE ---
alert,nad, ate lunch, aware of care plan and has a ride when she's ready
[2020-01-19 15:02] LABS: RBC Urine 0-2 /HPF (0); WBC Urine 30-49 /HPF (0-4)
[2020-01-19 15:03] LABS: Bacteria Urine 1+ /LPF; Squamous Epithelial Cell Urine 1+ /LPF
[2020-01-19 16:00] VITALS: BP 187/62; PULSE 65; RESP 16; TEMP 36.1; O2SAT 95
--- NOTE | 2020-01-19 16:03 | PC.NURSE ---
Pt ambulated with steady gait using walker, baseline per pt. pt is aox3, skin w/p/d, vss.
[2020-01-19 17:06] LABS: Glucose, Whole Blood 125 mg/dL (60-115)
== END 2020-01-19 17:05 | disposition home or self-care (01) ==
PROVIDERS: Emergency Provider Emergency Medicine
DX: E11.649 Type 2 diabetes mellitus with hypoglycemia without coma (principal); R41.82 Altered mental status, unspecified; Z79.899 Other long term (current) drug therapy; Z20.828 Contact with and (suspected) exposure to other viral communicable diseases; Z87.891 Personal history of nicotine dependence
CPT/HCPCS: 0241U; 36415; 71045; 80048; 80076; 81001; 82947; 84484; 85025; 87040; 87086; 93005; 99284

== ENCOUNTER 2020-01-22 09:31 | Emergency (ER) | payer MEDICARE, OTHER, SELFPAY ==
[2020-01-22] VITALS (16 sets, daily range): BP systolic 114–216; BP diastolic 34–79; PULSE 51–67; RESP 16–22; TEMP 36.6; O2SAT 95–97; BMI 28.6
--- NOTE | 2020-01-22 09:34 | ECG_ITS ---
Test Reason : HYPOGYLCEMIA Blood Pressure : / mmHG Vent. Rate : 051 BPM Atrial Rate : 051 BPM P-R Int : 226 ms QRS Dur : 104 ms QT Int : 562 ms P-R-T Axes : 051 037 039 degrees QTc Int : 517 ms Sinus bradycardia with 1st degree A-V block Septal infarct , age undetermined Prolonged QT Abnormal ECG When compared with ECG of 19-JAN-2020 11:49, MA interval has increased ST now depressed in Inferior leads Lateral leads T wave amplitude has decreased in Anterolateral leads Referred By: Kavin Elena Electronically Signed By:CORAZON OLSEN MD
--- NOTE | 2020-01-22 09:34 | CT_ITS ---
EXAMINATION: CT HEAD WITHOUT CONTRAST CLINICAL INFORMATION: Acute mental status change COMPARISON: Previous head CT May 2019 TECHNIQUE: Contiguous axial imaging was performed from the skull base to vertex without intravenous administration of contrast. This CT examination was performed using dose optimization techniques as appropriate, variously including the following: *Automated exposure control *Adjustment of mA and/or kV according to patient size (this includes techniques or standardized protocols for targeted exams where dose is matched to indication/reason for exam; i.e. extremities or head) *Use of iterative reconstruction technique DLP: 647 mGy-cm FINDINGS: There is no evidence of an extra-axial collection. There is no evidence of intra-axial or extra-axial hemorrhage. The ventricles and extra-axial CSF spaces are prominent suggestive of generalized atrophy. There is nonspecific periventricular white matter disease. There is evidence of an old left posterior parietal and bilateral basal ganglia infarcts that appear unchanged. No mass, mass effect or acute infarct is seen. There is evidence of severe atherosclerotic disease. Review at bone windows is unremarkable. There are polyps or cysts in the maxillary sinuses. CT/CT head/brain wo con IMPRESSION: No acute findings. Old infarcts, atrophy and nonspecific periventricular white matter disease similar to previous exams.
--- NOTE | 2020-01-22 09:35 | XR_ITS ---
EXAMINATION: XR CHEST CLINICAL INFORMATION: Altered mental status COMPARISON: Chest radiographs 12/28/2019, 05/29/2019 TECHNIQUE: Portable upright AP view of the chest was obtained. FINDINGS: There is mild hyperinflation and bronchial wall thickening similar to recent studies. There is no interval airspace consolidation or groundglass opacity or effusion. The heart is normal in size. The hilar and mediastinal contours and visualized bony structures are unremarkable. Fine surgical clips again seen base of the neck on left. XR/XR chest 1V IMPRESSION: No acute intrathoracic disease.
[2020-01-22 10:02] LABS: Basophils Percent Auto 0.3 % (0-2); Eosinophils Absolute Auto 0.3 X10*3/uL (0.0-0.4); Eosinophils Percent Auto 4.3 % (0-4); Hematocrit 39.5 % (37-47); Hemoglobin 12.4 g/dl (12.0-16.0); Imm Gran Abs Auto 0.04 X10*3/uL (0.00-0.03); Imm Gran Pct Auto 0.6 % (0.0-0.4); Lymphocytes Absolute Auto 0.4 X10*3/uL (1.2-4.9); Lymphocytes Percent Auto 6.4 % (20-40); MANUAL DIFF FLAG SCAN; Mean Corpuscular HGB Conc 31.4 g/dl (31.0-35.0); Mean Corpuscular Hemoglobin 28.1 pg (27.0-33.0); Mean Corpuscular Volume 89.4 fL (80-98); Mean Platelet Volume 9.3 fL (9.4-12.3); Monocytes Absolute Auto 0.5 X10*3/uL (0.1-1.2); Monocytes Percent Auto 7.5 % (2-11); Neutrophils Absolute Auto 5.4 X10*3/uL (2.0-8.3); Neutrophils Percent Auto 80.9 % (45-73); Platelet Count 219 X10*3/uL (160-400); Red Blood Count 4.42 X10*6/uL (4.20-5.50); Red Cell Distribution Width 14.8 % (11.0-16.0); SCAN SMEAR FLAG 1; White Blood Count 6.7 X10*3/uL (4.8-10.8)
[2020-01-22 10:08] LABS: INTERNATIONAL NORM RATIO 1.1 (0.9-1.1); Prothrombin Time 12.7 SEC (10.8-13.0)
[2020-01-22] MEDS: Dextrose 5 % and 0.45 % NaCl 1,000 ML 125 ML IVCONT (10:12)
--- NOTE | 2020-01-22 10:16 | PC.NURSE ---
18g r forearm patent from [facility]. additional line placed. labs drawn. medicated per [facility]. pt given warm blankets per request. pt requesting coffee and toast.
[2020-01-22 10:27] LABS: Troponin-I High Sensitivity 11.1 ng/L (<3.5-17.0)
[2020-01-22 10:28] LABS: Anion Gap 12 (12-20); Blood Urea Nitrogen 42 mg/dL (9-16); Calcium 8.2 mg/dL (8.4-10.2); Carbon Dioxide 29 mmol/L (22-29); Chloride 101 mmol/L (96-108); Creatinine Clr Calc Pharmacy 29.3; Estimated Glomerular Filt Rate 31; Glucose Random 163 mg/dL (60-115); Potassium 3.9 mmol/l (3.3-5.1); Sodium 138 mmol/L (135-145)
[2020-01-22 10:28] LABS: Alanine Aminotransferase 14 U/L (0-31); Albumin Level 3.2 g/dL (3.5-5.0); Alkaline Phosphatase 58 U/L (39-117); Aspartate Amino Transferase 18 U/L (5-31); Bilirubin Direct 0.2 mg/dL (0.0-0.5); Bilirubin Total 0.4 mg/dL (0.0-1.0); Total Protein 6.9 g/dL (6.5-8.0)
[2020-01-22 10:38] LABS: SLIDE REVIEW VERIFIED
--- NOTE | 2020-01-22 10:41 | PC.NURSE ---
donna schreiber hcp daughter. [phone]. plan for assisted living or ltc. second time she may have taken too much insulin.
[2020-01-22 11:51] LABS: Glucose, Whole Blood 68 mg/dL (60-115)
--- NOTE | 2020-01-22 12:26 | ED_ITS ---
HPI - Altered Mental Status General Chief Complaint: Altered Mental Status Stated Complaint: ams Time Seen by Provider: 01/22/20 09:33 Source: EMS Mode of arrival: EMS Limitations: altered mental status History of Present Illness HPI narrative: Patient's history of diabetes on Lantus insulin was found very lethargic at home by daughter POC per EMS was in 30s was given dextrose IV on arrival blood sugar was 56. Patient was here 3 days ago for similar situation per daughter patient does take higher dose of insulin done prescribed and does not eat well and does not listen to the family patient does have early dementia family is looking for placement as this is happening more often and they are unable to manage MD complaint: altered mental status and decreased responsiveness Timing confirmed by: family member Severity: moderate Related Data Home Medications Medication Instructions Recorded Confirmed amlodipine 5 mg PO DAILY 01/22/20 01/22/20 atorvastatin [Lipitor] 40 mg PO DAILY 01/22/20 01/22/20 clonidine 1 patch TRANSDERMAL QWEEK 01/22/20 01/22/20 clopidogrel 75 mg PO DAILY 01/22/20 01/22/20 insulin degludec [Tresiba 45 unit SUBCUT BID 01/22/20 01/22/20 FlexTouch U-200] losartan 100 mg PO DAILY 01/22/20 01/22/20 propranolol [Inderal XL] 120 mg PO BID 01/22/20 01/22/20 Allergies Allergy/AdvReac Type Severity Reaction Status Date / Time No Known Allergies Allergy Verified 01/19/20 11:43 [No Known Allergies*] Review of Systems Review of Systems: Yes Unobtainable due to mental status Neurologic: Reports confusion Psychiatric: Psychiatric: Reports confusion [facility] Past Medical History Medical History CVA (cerebral vascular accident) Diabetes Hypertension Social History Social History Alcohol intake: never Smoking Status: Former smoker Smoked in Last 30 Days: No Use of substances other than those prescribed or required for medical reasons: No Advance Directives: No Advance Directives Information Provided: Yes Physical Exam Vital Signs: Vital Signs: Last Vital Signs Temp 97.8 F 01/22/20 16:40 Pulse 60 01/22/20 16:01 Resp 18 11/20/20 11:51 BP 114/69 01/22/20 16:01 Pulse Ox 96 01/22/20 16:01 Body Mass Index 28.6 Const: General: healthy appearing, no acute distress, confusion, lethargic and patient obtunded Nutritional Appearance: average body habitus Orientation/consciousness: oriented to person, confusion, patient obtunded and lethargic Limitations: altered mental status HENMT: Head: Yes normal to inspection Ears: hearing grossly normal bilaterally General nose exam: Normal external nose present Face and sinus: Yes normal facial exam Mouth: Normal oral and palatal mucosa present Eyes: Conjunctivae: conjunctivae normal Sclerae: sclerae normal Pupils: Equal, round and reactive pupils present Neck: Neck: Yes normal visual inspection, Yes no meningeal signs and Yes no JVD Carotids: normal carotid upstroke Lymphatic: no lymphadenopathy noted Resp: Effort & Inspection: normal respiratory effort Auscultation: clear to auscultation bilaterally, no crackles, no rales, no rhonchi and no wheezes Cardio: Rate: regular rate Rhythm: regular rhythm Heart sounds: S1 normal heart sound present and S2 normal heart sound present GI: Inspection: Yes normal to inspection Palpation (GI): Soft to palpation, Firmness to palpation present (GI), nontender, no guarding and No hepatosplenomegaly present : General: Yes no CVA tenderness Back/Spine/Pelvis: Back: no CVA tenderness Thoracic/Lumbar Spine: thoracic and lumbar spine normal to inspection Neuro: General: oriented to person, moves all extremities, no meningeal signs, no focal motor deficits, CN's II-XI intact bilaterally, confusion and patient obtunded Cranial nerves: Yes Equal, round and reactive pupils present Course Course Course Narrative: patient with diabetes noncompliant taking higher dose of insulin without eating much coming to the ER multiple times for hypoglycemia. Per daughter unable to manage her at home planning to place in [facility] for further management, patient COVID-[address] head and chest x-ray also negative, medically cleared for [facility] placement patient alert oriented now to baseline ambulatory in the ER MDM - Altered Mental Status Lab Data Result diagrams: 01/22/20 09:52 01/22/20 09:52 Labs: Lab Results 01/22/20 01/22/20 01/22/20 Range/Units 09:35 09:50 09:51 WBC (4.8-10.8) X10*3/uL RBC (4.20-5.50) X10*6/uL Hgb (12.0-16.0) g/dl Hct (37-47) % MCV (80-98) fL MCH (27.0-33.0) pg MCHC (31.0-35.0) g/dl RDW (11.0-16.0) % Plt Count (160-400) X10*3/uL MPV (9.4-12.3) fL Immature Gran % (Auto) (0.0-0.4) % Neut % (Auto) (45-73) % Lymph % (Auto) (20-40) % [place] % (Auto) (2-11) % Eos % (Auto) (0-4) % Baso % (Auto) (0-2) % Lymph # (Auto) (1.2-4.9) X10*3/uL [place] # (Auto) (0.1-1.2) X10*3/uL Eos # (Auto) (0.0-0.4) X10*3/uL Baso # (Auto) (0.0-0.2) X10*3/uL Abs Immat Gran (auto) (0.00-0.03) X10*3/uL Absolute Neuts (auto) (2.0-8.3) X10*3/uL Absolute Nucleated RBC (0.0-0.012) X10*3/uL Nucleated RBC % (auto) (0.0-0.2) /100WBC Smear Tech's Comments PT (10.8-13.0) SEC INR (0.9-1.1) APTT (24.1-38.0) SEC Sodium (135-145) mmol/L Potassium (3.3-5.1) mmol/l Chloride (96-108) mmol/L Carbon Dioxide (22-29) mmol/L Anion Gap (12-20) BUN (9-16) mg/dL Creatinine (0.5-1.4) mg/dL Estim Creat Clear Calc Estimated GFR POC Glucose 53 L* 110 (60-115) mg/dL Random Glucose (60-115) mg/dL Calcium (8.4-10.2) mg/dL Total Bilirubin 0.4 (0.0-1.0) mg/dL Direct Bilirubin 0.2 (0.0-0.5) mg/dL AST 18 (5-31) U/L ALT 14 (0-31) U/L Alkaline Phosphatase 58 D (39-117) U/L Troponin I High Sens (<3.5-17.0) ng/L Total Protein 6.9 (6.5-8.0) g/dL Albumin 3.2 L (3.5-5.0) g/dL Urine Color Urine Appearance Urine pH (5.0-8.0) Ur Specific [place] (1.005-1.025) Urine Protein (NEG-TRACE) MG/DL Urine Glucose (UA) (NEG) MG/DL Urine Ketones (NEG) MG/DL Urine Blood (NEG) Urine Nitrite (NEG) Ur Leukocyte Esterase (NEG) Urine RBC (0) /HPF Urine WBC (0-4) /HPF Ur Squamous Epith Cells /LPF Urine Bacteria /LPF Urine Mucus /LPF COVID-19 (JENNY) (Negative) COVID-19 Clin Com 01/22/20 01/22/20 01/22/20 Range/Units 09:51 09:52 09:52 WBC 6.7 (4.8-10.8) X10*3/uL RBC 4.42 (4.20-5.50) X10*6/uL Hgb 12.4 D (12.0-16.0) g/dl Hct 39.5 (37-47) % MCV 89.4 (80-98) fL MCH 28.1 (27.0-33.0) pg MCHC 31.4 (31.0-35.0) g/dl RDW 14.8 (11.0-16.0) % Plt Count 219 D (160-400) X10*3/uL MPV 9.3 L (9.4-12.3) fL Immature Gran % (Auto) 0.6 H (0.0-0.4) % Neut % (Auto) 80.9 H (45-73) % Lymph % (Auto) 6.4 L (20-40) % [place] % (Auto) 7.5 (2-11) % Eos % (Auto) 4.3 H (0-4) % Baso % (Auto) 0.3 (0-2) % Lymph # (Auto) 0.4 L (1.2-4.9) X10*3/uL [place] # (Auto) 0.5 (0.1-1.2) X10*3/uL Eos # (Auto) 0.3 (0.0-0.4) X10*3/uL Baso # (Auto) 0.0 (0.0-0.2) X10*3/uL Abs Immat Gran (auto) 0.04 H (0.00-0.03) X10*3/uL Absolute Neuts (auto) 5.4 (2.0-8.3) X10*3/uL Absolute Nucleated RBC 0.000 (0.0-0.012) X10*3/uL Nucleated RBC % (auto) 0.0 (0.0-0.2) /100WBC Smear Tech's Comments VERIFIED PT (10.8-13.0) SEC INR (0.9-1.1) APTT (24.1-38.0) SEC Sodium 138 (135-145) mmol/L Potassium 3.9 D (3.3-5.1) mmol/l Chloride 101 (96-108) mmol/L Carbon Dioxide 29 (22-29) mmol/L Anion Gap 12 (12-20) BUN 42 H (9-16) mg/dL Creatinine 1.63 H (0.5-1.4) mg/dL Estim Creat Clear Calc 29.3 Estimated GFR 31 POC Glucose (60-115) mg/dL Random Glucose 163 H D (60-115) mg/dL Calcium 8.2 L D (8.4-10.2) mg/dL Total Bilirubin (0.0-1.0) mg/dL Direct Bilirubin (0.0-0.5) mg/dL AST (5-31) U/L ALT (0-31) U/L Alkaline Phosphatase (39-117) U/L Troponin I High Sens 11.1 (<3.5-17.0) ng/L Total Protein (6.5-8.0) g/dL Albumin (3.5-5.0) g/dL Urine Color Urine Appearance Urine pH (5.0-8.0) Ur Specific [place] (1.005-1.025) Urine Protein (NEG-TRACE) MG/DL Urine Glucose (UA) (NEG) MG/DL Urine Ketones (NEG) MG/DL Urine Blood (NEG) Urine Nitrite (NEG) Ur Leukocyte Esterase (NEG) Urine RBC (0) /HPF Urine WBC (0-4) /HPF Ur Squamous Epith Cells /LPF Urine Bacteria /LPF Urine Mucus /LPF COVID-19 (JENNY) (Negative) COVID-19 Clin Com 01/22/20 01/22/20 01/22/20 Range/Units 09:52 11:47 14:11 WBC (4.8-10.8) X10*3/uL RBC (4.20-5.50) X10*6/uL Hgb (12.0-16.0) g/dl Hct (37-47) % MCV (80-98) fL MCH (27.0-33.0) pg MCHC (31.0-35.0) g/dl RDW (11.0-16.0) % Plt Count (160-400) X10*3/uL MPV (9.4-12.3) fL Immature Gran % (Auto) (0.0-0.4) % Neut % (Auto) (45-73) % Lymph % (Auto) (20-40) % [place] % (Auto) (2-11) % Eos % (Auto) (0-4) % Baso % (Auto) (0-2) % Lymph # (Auto) (1.2-4.9) X10*3/uL [place] # (Auto) (0.1-1.2) X10*3/uL Eos # (Auto) (0.0-0.4) X10*3/uL Baso # (Auto) (0.0-0.2) X10*3/uL Abs Immat Gran (auto) (0.00-0.03) X10*3/uL Absolute Neuts (auto) (2.0-8.3) X10*3/uL Absolute Nucleated RBC (0.0-0.012) X10*3/uL Nucleated RBC % (auto) (0.0-0.2) /100WBC Smear Tech's Comments PT 12.7 (10.8-13.0) SEC INR 1.1 (0.9-1.1) APTT 35.0 (24.1-38.0) SEC Sodium (135-145) mmol/L Potassium (3.3-5.1) mmol/l Chloride (96-108) mmol/L Carbon Dioxide (22-29) mmol/L Anion Gap (12-20) BUN (9-16) mg/dL Creatinine (0.5-1.4) mg/dL Estim Creat Clear Calc Estimated GFR POC Glucose 68 (60-115) mg/dL Random Glucose (60-115) mg/dL Calcium (8.4-10.2) mg/dL Total Bilirubin (0.0-1.0) mg/dL Direct Bilirubin (0.0-0.5) mg/dL AST (5-31) U/L ALT (0-31) U/L Alkaline Phosphatase (39-117) U/L Troponin I High Sens (<3.5-17.0) ng/L Total Protein (6.5-8.0) g/dL Albumin (3.5-5.0) g/dL Urine Color YELLOW Urine Appearance HAZY Urine pH 8.0 (5.0-8.0) Ur Specific [place] 1.020 (1.005-1.025) Urine Protein 2+ H (NEG-TRACE) MG/DL Urine Glucose (UA) NEG (NEG) MG/DL Urine Ketones NEG (NEG) MG/DL Urine Blood 2+ H (NEG) Urine Nitrite NEG (NEG) Ur Leukocyte Esterase 2+ H (NEG) Urine RBC 1-4 (0) /HPF Urine WBC 15-29 H (0-4) /HPF Ur Squamous Epith Cells 1+ /LPF Urine Bacteria 1+ /LPF Urine Mucus 1+ /LPF COVID-19 (JENNY) (Negative) COVID-19 Clin Com 01/22/20 01/22/20 Range/Units 15:07 16:41 WBC (4.8-10.8) X10*3/uL RBC (4.20-5.50) X10*6/uL Hgb (12.0-16.0) g/dl Hct (37-47) % MCV (80-98) fL MCH (27.0-33.0) pg MCHC (31.0-35.0) g/dl RDW (11.0-16.0) % Plt Count (160-400) X10*3/uL MPV (9.4-12.3) fL Immature Gran % (Auto) (0.0-0.4) % Neut % (Auto) (45-73) % Lymph % (Auto) (20-40) % [place] % (Auto) (2-11) % Eos % (Auto) (0-4) % Baso % (Auto) (0-2) % Lymph # (Auto) (1.2-4.9) X10*3/uL [place] # (Auto) (0.1-1.2) X10*3/uL Eos # (Auto) (0.0-0.4) X10*3/uL Baso # (Auto) (0.0-0.2) X10*3/uL Abs Immat Gran (auto) (0.00-0.03) X10*3/uL Absolute Neuts (auto) (2.0-8.3) X10*3/uL Absolute Nucleated RBC (0.0-0.012) X10*3/uL Nucleated RBC % (auto) (0.0-0.2) /100WBC Smear Tech's Comments PT (10.8-13.0) SEC INR (0.9-1.1) APTT (24.1-38.0) SEC Sodium (135-145) mmol/L Potassium (3.3-5.1) mmol/l Chloride (96-108) mmol/L Carbon Dioxide (22-29) mmol/L Anion Gap (12-20) BUN (9-16) mg/dL Creatinine (0.5-1.4) mg/dL Estim Creat Clear Calc Estimated GFR POC Glucose 167 H (60-115) mg/dL Random Glucose (60-115) mg/dL Calcium (8.4-10.2) mg/dL Total Bilirubin (0.0-1.0) mg/dL Direct Bilirubin (0.0-0.5) mg/dL AST (5-31) U/L ALT (0-31) U/L Alkaline Phosphatase (39-117) U/L Troponin I High Sens (<3.5-17.0) ng/L Total Protein (6.5-8.0) g/dL Albumin (3.5-5.0) g/dL Urine Color Urine Appearance Urine pH (5.0-8.0) Ur Specific [place] (1.005-1.025) Urine Protein (NEG-TRACE) MG/DL Urine Glucose (UA) (NEG) MG/DL Urine Ketones (NEG) MG/DL Urine Blood (NEG) Urine Nitrite (NEG) Ur Leukocyte Esterase (NEG) Urine RBC (0) /HPF Urine WBC (0-4) /HPF Ur Squamous Epith Cells /LPF Urine Bacteria /LPF Urine Mucus /LPF COVID-19 (JENNY) Negative (Negative) COVID-19 Clin Com See Note Discharge Plan Discharge Clinical Impression: Hypoglycemia, Acute alteration in mental status Prescriptions: No [facility] atorvastatin [Lipitor] 40 mg Tablet 40 mg PO DAILY RF: 0 clopidogrel 75 mg Tablet 75 mg PO DAILY RF: 0 amlodipine 5 mg Tablet 5 mg PO DAILY RF: 0 clonidine 0.3 mg/24 hr Patch Weekly 1 patch TRANSDERMAL QWEEK RF: 0 losartan 100 mg Tablet 100 mg PO DAILY RF: 0 Inderal XL 120 mg Capsule,Extended Release 24hr 120 mg PO BID RF: 0 Tresiba FlexTouch U-200 200 unit/mL (3 mL) Insulin Pen 45 unit SUBCUT BID RF: 0
[2020-01-22 13:26] LABS: Glucose, Whole Blood 110 mg/dL (60-115)
[2020-01-22 13:26] LABS: Glucose, Whole Blood 53 mg/dL (60-115)
--- NOTE | 2020-01-22 13:26 | MHC.CM.ED ---
Received case management consult from Dr Elena. Patient came to ER due to AMS from hypoglycemia. There is concern patient is taking too much insulin and not eating. Physical therapy completed. No home therapies are needed. Spoke with patient's daughter Autumn via telephone at [phone]. [facility] is active with [facility]. Autumn doesn't feel patient can safely go home. T/W explained Medicare would not cover snf because patient passed physical therapy. However, private pay respite is an option. Autumn agreeable to referral being broadcasted. Referral broadcasted in [employer]. Continue to monitor for d/c needs.
--- NOTE | 2020-01-22 13:51 | PC.NURSE ---
md aware if need to verify meds for access to bp medication
[2020-01-22] MEDS: Losartan Potassium 50 MG TABLET 100 MG PO (14:10)
[2020-01-22] MEDS: amLODIPine Besylate 5 MG TABLET PO (14:10)
[2020-01-22] MEDS: Propranolol HCL LA 60 MG CAP.SA.24H 120 MG PO (14:11)
[2020-01-22 14:21] LABS: Glucose Urine UA NEG (NEG); Leukocyte Esterase Urine 2+ (NEG); Nitrite Urine NEG (NEG); Urine Blood 2+ (NEG); Urine Ketones NEG (NEG); Urine Protein 2+ MG/DL (NEG-TRACE)
[2020-01-22 14:25] LABS: Appearance Urine HAZY; Color Urine YELLOW
[2020-01-22 14:34] LABS: Squamous Epithelial Cell Urine 1+ /LPF
[2020-01-22 14:35] LABS: Bacteria Urine 1+ /LPF; Mucus Urine 1+ /LPF
[2020-01-22 15:10] LABS: Glucose, Whole Blood 167 mg/dL (60-115)
--- NOTE | 2020-01-22 15:58 | PC.NURSE ---
pt ambulates to bathroom and back with minimal assistance
--- NOTE | 2020-01-22 16:44 | MHC.CM.ED ---
[facility], [facility] and [facility] are able to offer respite rates. Autumn is requesting patient go to [facility]. Covid test is ordered and pending. Autumn aware patient will spend the night in the ER. She can be reached by cell at [phone] or her patients' landline at [phone]. Continue to monitor for d/c needs.
--- NOTE | 2020-01-22 17:01 | PC.NURSE ---
plan for pt to stay over night and dc to [facility] in am
[2020-01-22 17:02] LABS: COVID-19 Test Negative (Negative); IDNOW Serial# 9DD0AD1C
[2020-01-22 19:32] LABS: Glucose, Whole Blood 205 mg/dL (60-115)
--- NOTE | 2020-01-22 19:59 | PC.NURSE ---
Daughter Sienna to be called with updates [phone].
--- NOTE | 2020-01-22 20:09 | PC.NURSE ---
Report taken from [facility] nurse resuming care. Pt is CAOx4, speaking full sentences, denies pain/discomfort. POC 217 mg/dl. VSS, pt noted to be hypertensive. Pt requesting coffee. Pt refusing SNF placement or AL at this time. Continue to monitor.
--- NOTE | 2020-01-22 20:25 | PC.NURSE ---
Pharmacy called for 2100 dose of Propranolol.
--- NOTE | 2020-01-22 21:03 | PC.NURSE ---
This RN discussing pts elevated BP with MD. Plan for 10 mg of Amlodipine and to hold Propranolol @ this time due to HR of 58 bpm.
[2020-01-22] MEDS: amLODIPine Besylate 10 MG TABLET PO (21:06)
--- NOTE | 2020-01-22 21:07 | PC.NURSE ---
Pt medicated per EMAR with Amlodipine.
[2020-01-22 22:34] LABS: Glucose, Whole Blood 217 mg/dL (60-115)
[2020-01-22 22:34] LABS: Glucose, Whole Blood 224 mg/dL (60-115)
[2020-01-22] MEDS: Insulin Lispro 100 UNIT/ML 3 ML VIAL SUBCUT (22:39)
[2020-01-23 01:01] VITALS: BP 184/46; PULSE 56; RESP 16
--- NOTE | 2020-01-23 01:05 | PC.NURSE ---
Pt unable to get any rest in room 22 due to room being directly in front of nurses station/insurance follow up representative desk. Pt moved into room 19. VSS, BP remains hypertensive, pt states she usually has a systolic BP of 130. This RN discussing concern with MD Baker who stated to let her sleep the night as he is concerned of lowering it too much. SB on the monitor @ 54-58 bpm. POC noted to be 144 mg/dl. Pt requesting a snack, stating she is concerned about her POC dropping during the night. Pt provided with crackers and orange juice. Pt repositioned in bed, provided with clean linens. Continue to monitor.
--- NOTE | 2020-01-23 01:23 | PC.NURSE ---
Pt requesting to use the bathroom, pt assisted OOB to the bathroom, ambulating with a pelaez/steady gait. Pt returns to bed, assisted into POC. Continue to monitor.
[2020-01-23 03:28] VITALS: PULSE 56; RESP 16
--- NOTE | 2020-01-23 04:43 | PC.NURSE ---
Pt ringing her call galvan, requesting to go to the bathroom. Pt states I've been constipated lately, I might be in there for a little while. Pt ambulating to the bathroom with a steady gait. Pt to ring cord when ready to be assisted back to room.
[2020-01-23] MEDS: Sennosides 8.6 MG TABLET PO (04:55)
[2020-01-23 05:01] LABS: Glucose, Whole Blood 120 mg/dL (60-115)
[2020-01-23 05:01] LABS: Glucose, Whole Blood 180 mg/dL (60-115)
[2020-01-23 05:01] LABS: Glucose, Whole Blood 144 mg/dL (60-115)
--- NOTE | 2020-01-23 05:03 | PC.NURSE ---
Pt unable to move her bowels, requesting stool softeners. Pt medicated per EMAR for constipation with Senna. POC 120 mg/dl. Pt resting in bed, continue to monitor.
--- NOTE | 2020-01-23 05:46 | PC.NURSE ---
Pt repositioned in bed into POC. Pt awaiting breakfast, reports sleeping poorly throughout the night. Continue to monitor.
[2020-01-23 06:27] VITALS: BP 164/37; PULSE 54; RESP 16; O2SAT 97
--- NOTE | 2020-01-23 06:33 | PC.NURSE ---
Pt ringing her call galvan, requesting warm blankets. VSS, POC noted to be 84 mg/dl, pt requesting OJ, awaiting breakfast. Continue to monitor.
[2020-01-23 06:37] LABS: Glucose, Whole Blood 84 mg/dL (60-115)
[2020-01-23 07:25] VITALS: BP 169/37; PULSE 54; RESP 16; TEMP 36.4; O2SAT 98
[2020-01-23] MEDS: Clopidogrel Bisulfate 75 MG TABLET PO (08:46)
[2020-01-23 08:47] VITALS: BP 175/42; PULSE 56
[2020-01-23] MEDS: Losartan Potassium 50 MG TABLET 100 MG PO (08:47)
[2020-01-23] MEDS: Atorvastatin Calcium 40 MG TABLET PO (08:47)
[2020-01-23 08:50] VITALS: BP 175/42; PULSE 56
[2020-01-23] MEDS: amLODIPine Besylate 5 MG TABLET PO (08:50)
--- NOTE | 2020-01-23 08:51 | PC.NURSE ---
pt pulse 56, notified md before giving BP meds, instructed to hold propranolol, med held.
--- NOTE | 2020-01-23 09:23 | MHC.CM.ED ---
Negative COVID and VS faxed to [facility] in anticipation of pt's transfer today. Pt accepted for a 10am arrival. Financial agreements have been completed by family and facility. Call placed to pt's dtr Autumn at [phone] informing her of above. Pt will transfer via [facility] today - pt, dtr and ED care team aware and in agreement of plan.
== END 2020-01-23 10:11 | disposition skilled nursing facility (03) ==
PROVIDERS: Internal Medicine; Emergency Provider Emergency Medicine
DX: R41.82 Altered mental status, unspecified (principal); E11.649 Type 2 diabetes mellitus with hypoglycemia without coma; Z20.828 Contact with and (suspected) exposure to other viral communicable diseases; Z87.891 Personal history of nicotine dependence; Z79.899 Other long term (current) drug therapy; Z79.4 Long term (current) use of insulin
CPT/HCPCS: 36415; 70450; 71045; 80048; 80076; 81001; 82947; 84484; 85025; 85610; 85730; 87086; 87635; 93005; 96361; 96374; 97161; 99285

== ENCOUNTER 2020-02-08 06:36 | Emergency (ER) | payer MEDICARE, OTHER, SELFPAY ==
--- NOTE | 2020-02-08 06:56 | ECG_ITS ---
Test Reason : HYPOTENSION Blood Pressure : / mmHG Vent. Rate : 054 BPM Atrial Rate : 054 BPM P-R Int : 224 ms QRS Dur : 082 ms QT Int : 494 ms P-R-T Axes : 054 026 030 degrees QTc Int : 468 ms Sinus bradycardia with 1st degree A-V block Cannot exclude old inferior infarct When compared with ECG of 22-JAN-2020 09:42, Criteria for Septal infarct are no longer Present T wave amplitude has increased in Lateral leads QT has shortened Referred By: Jaylyn Lehman Electronically Signed By:ANANYA BERMAN
--- NOTE | 2020-02-08 06:57 | XR_ITS ---
EXAMINATION: XR CHEST CLINICAL INFORMATION: Weakness. COMPARISON: None TECHNIQUE: Frontal view of the chest was obtained. FINDINGS: The lungs are well-expanded with minimal patchy linear opacity in lung bases suspicious for early infiltrates. Upper lungs are clear. The heart size and pulmonary vascularity is normal. There is mild spondylosis dorsal spine. No lytic process. XR/XR chest 1V IMPRESSION: Suspect early infiltrates in both lung bases.
--- NOTE | 2020-02-08 07:03 | ED.WEAKNESS ---
HPI - Weakness General Chief complaint: General Medical Stated complaint: LOW POC Time Seen by Provider: 02/08/20 06:55 Source: EMS and old records reviewed Mode of arrival: EMS Limitations: altered mental status (slightly confused) History of Present Illness HPI Narrative: EMS concerned as patient and live together who manages her medications and state they both seem confused, the patient told me she didn't take DM medication and that she isn't sure when she last ate Complaint: generalized weakness Onset (ago): unknown Duration: improved Location: generalized Migration: none Severity: moderate Quality: dull Relieving factors: other (given oral glucose, orange juice, 1/2 of dextrose blood sugar for 68 her normals are 200) Exacerbating factors: none Context: history of similar (3rd visit in 1.5 months for similar presentation managed at home by ) Associated symptoms: other (feels weak and cold) Related Data Home Medications Medication Instructions Recorded Confirmed amlodipine 5 mg PO DAILY 01/22/20 01/22/20 atorvastatin [Lipitor] 40 mg PO DAILY 01/22/20 01/22/20 clonidine 1 patch TRANSDERMAL QWEEK 01/22/20 01/22/20 clopidogrel 75 mg PO DAILY 01/22/20 01/22/20 insulin degludec [Tresiba 45 unit SUBCUT BID 01/22/20 01/22/20 FlexTouch U-200] losartan 100 mg PO DAILY 01/22/20 01/22/20 propranolol [Inderal XL] 120 mg PO BID 01/22/20 01/22/20 Previous Rx's Medication Instructions Recorded cefuroxime axetil 250 mg PO BID 7 Days #14 tab 02/08/20 Allergies Allergy/AdvReac Type Severity Reaction Status Date / Time No Known Allergies Allergy Verified 02/08/20 07:06 [No Known Allergies*] Review of Systems Review of Systems: ROS unable to be obtained due to altered mental status [facility] Past Medical History Attestation statement: The following information was validated with the patient. Medical History (Updated 02/08/20 @ 11:49 by Jaylyn Lehman DO) Cognitive impairment CVA (cerebral vascular accident) Diabetes Hypertension Social History Social History Alcohol intake: never Smoking Status: Former smoker Smoked in Last 30 Days: No Use of substances other than those prescribed or required for medical reasons: No Advance Directives: No Advance Directives Information Provided: No Physical Exam Vital Signs: Vital Signs: Last Vital Signs Temp 97.6 F 02/08/20 09:10 Pulse 60 02/08/20 12:12 Resp 16 02/08/20 12:12 BP 167/48 H 02/08/20 09:10 Pulse Ox 98 02/08/20 09:10 Body Mass Index 66.4 Appearance: Alert. Oriented X2. Mild acute distress. Eyes: Pupils equal, round and reactive to light. ENT: Pharynx normal. Neck: Normal inspection. Neck supple. CVS: bradycardic heart rate and rhythm. Pulses normal. Respiratory: No respiratory distress. Breath sounds normal. Abdomen: Soft and non-tender. Skin: Skin warm and cool to touch. pale skin color. Normal skin turgor. Extremities: No lower extremity edema. No calf ttp Neuro: Oriented X 2. No motor deficit. No sensory deficit. Course Course Course Narrative: mild UTI, negative WBC count and lactic, CT scan of chest to confirm pneumonia BS stabilizing and temp stabilizing repeat trop flat denies CP prior elevations in the past, needs PT / CM even with safety concerns CM notes that the family has a plan in place and that they will not private pay for a STR at this time, she is going to go to [facility] this weekend, she is to be DC home MDM - Weakness MDM Narrative Medical decision making narrative: 79 yo female with DM, HTN, CVA, some underlying cognitive impairment here with her 3rd visit in 1.5 months for weakness/low blood sugars the patient cannot tell me if she is taking insulin or what she last ate, she is hypothermic along with low BS given meds en route BS only up to 81 will repeat dextrose, will need labs, UA, CXR, toxic/metabolic workup at this time if she stabilizes and workup is negative will involve PT and CM for safety concerns Lab Data Result diagrams: 02/08/20 07:38 02/08/20 07:39 Labs: Lab Results 02/08/20 02/08/20 02/08/20 Range/Units 06:47 07:38 07:38 WBC 9.0 (4.8-10.8) X10*3/uL RBC 4.78 (4.20-5.50) X10*6/uL Hgb 13.1 (12.0-16.0) g/dl Hct 41.8 (37-47) % MCV 87.4 (80-98) fL MCH 27.4 (27.0-33.0) pg MCHC 31.3 (31.0-35.0) g/dl RDW 15.1 (11.0-16.0) % Plt Count 354 D (160-400) X10*3/uL MPV 9.6 (9.4-12.3) fL Immature Gran % (Auto) 0.3 (0.0-0.4) % Neut % (Auto) 80.5 H (45-73) % Lymph % (Auto) 8.0 L (20-40) % [place] % (Auto) 6.6 (2-11) % Eos % (Auto) 3.9 (0-4) % Baso % (Auto) 0.7 (0-2) % Lymph # (Auto) 0.7 L (1.2-4.9) X10*3/uL [place] # (Auto) 0.6 (0.1-1.2) X10*3/uL Eos # (Auto) 0.4 (0.0-0.4) X10*3/uL Baso # (Auto) 0.1 (0.0-0.2) X10*3/uL Abs Immat Gran (auto) 0.03 (0.00-0.03) X10*3/uL Absolute Neuts (auto) 7.3 (2.0-8.3) X10*3/uL Absolute Nucleated RBC 0.000 (0.0-0.012) X10*3/uL Nucleated RBC % (auto) 0.0 (0.0-0.2) /100WBC PT 12.7 (10.8-13.0) SEC INR 1.1 (0.9-1.1) APTT 40.9 H (24.1-38.0) SEC Sodium (135-145) mmol/L Potassium (3.3-5.1) mmol/l Chloride (96-108) mmol/L Carbon Dioxide (22-29) mmol/L Anion Gap (12-20) BUN (9-16) mg/dL Creatinine (0.5-1.4) mg/dL Estim Creat Clear Calc Estimated GFR POC Glucose 81 (60-115) mg/dL Random Glucose (60-115) mg/dL Lactic Acid (0.5-2.0) mmol/L Calcium (8.4-10.2) mg/dL Magnesium (1.6-2.6) mg/dL Total Bilirubin (0.0-1.0) mg/dL Direct Bilirubin (0.0-0.5) mg/dL AST (5-31) U/L ALT (0-31) U/L Alkaline Phosphatase (39-117) U/L Total Creatine Kinase (26-140) U/L Troponin I High Sens (<3.5-17.0) ng/L Total Protein (6.5-8.0) g/dL Albumin (3.5-5.0) g/dL Lipase (8-78) U/L TSH (0.32-4.0) uIU/mL Urine Color Urine Appearance Urine pH (5.0-8.0) Ur Specific [place] (1.005-1.025) Urine Protein (NEG-TRACE) MG/DL Urine Glucose (UA) (NEG) MG/DL Urine Ketones (NEG) MG/DL Urine Blood (NEG) Urine Nitrite (NEG) Ur Leukocyte Esterase (NEG) Urine RBC (0) /HPF Urine WBC (0-4) /HPF Ur Squamous Epith Cells /LPF Urine Bacteria /LPF COVID-19 (JENNY) (Negative) COVID-19 Clin Com 02/08/20 02/08/20 02/08/20 Range/Units 07:38 07:38 07:38 WBC (4.8-10.8) X10*3/uL RBC (4.20-5.50) X10*6/uL Hgb (12.0-16.0) g/dl Hct (37-47) % MCV (80-98) fL MCH (27.0-33.0) pg MCHC (31.0-35.0) g/dl RDW (11.0-16.0) % Plt Count (160-400) X10*3/uL MPV (9.4-12.3) fL Immature Gran % (Auto) (0.0-0.4) % Neut % (Auto) (45-73) % Lymph % (Auto) (20-40) % [place] % (Auto) (2-11) % Eos % (Auto) (0-4) % Baso % (Auto) (0-2) % Lymph # (Auto) (1.2-4.9) X10*3/uL [place] # (Auto) (0.1-1.2) X10*3/uL Eos # (Auto) (0.0-0.4) X10*3/uL Baso # (Auto) (0.0-0.2) X10*3/uL Abs Immat Gran (auto) (0.00-0.03) X10*3/uL Absolute Neuts (auto) (2.0-8.3) X10*3/uL Absolute Nucleated RBC (0.0-0.012) X10*3/uL Nucleated RBC % (auto) (0.0-0.2) /100WBC PT (10.8-13.0) SEC INR (0.9-1.1) APTT (24.1-38.0) SEC Sodium (135-145) mmol/L Potassium (3.3-5.1) mmol/l Chloride (96-108) mmol/L Carbon Dioxide (22-29) mmol/L Anion Gap (12-20) BUN (9-16) mg/dL Creatinine (0.5-1.4) mg/dL Estim Creat Clear Calc Estimated GFR POC Glucose (60-115) mg/dL Random Glucose (60-115) mg/dL Lactic Acid 1.9 (0.5-2.0) mmol/L Calcium (8.4-10.2) mg/dL Magnesium (1.6-2.6) mg/dL Total Bilirubin (0.0-1.0) mg/dL Direct Bilirubin (0.0-0.5) mg/dL AST (5-31) U/L ALT (0-31) U/L Alkaline Phosphatase (39-117) U/L Total Creatine Kinase (26-140) U/L Troponin I High Sens 61.2 H D (<3.5-17.0) ng/L Total Protein (6.5-8.0) g/dL Albumin (3.5-5.0) g/dL Lipase (8-78) U/L TSH 2.27 (0.32-4.0) uIU/mL Urine Color Urine Appearance Urine pH (5.0-8.0) Ur Specific [place] (1.005-1.025) Urine Protein (NEG-TRACE) MG/DL Urine Glucose (UA) (NEG) MG/DL Urine Ketones (NEG) MG/DL Urine Blood (NEG) Urine Nitrite (NEG) Ur Leukocyte Esterase (NEG) Urine RBC (0) /HPF Urine WBC (0-4) /HPF Ur Squamous Epith Cells /LPF Urine Bacteria /LPF COVID-19 (JENNY) (Negative) COVID-19 Clin Com 02/08/20 02/08/20 02/08/20 Range/Units 07:39 08:15 09:11 WBC (4.8-10.8) X10*3/uL RBC (4.20-5.50) X10*6/uL Hgb (12.0-16.0) g/dl Hct (37-47) % MCV (80-98) fL MCH (27.0-33.0) pg MCHC (31.0-35.0) g/dl RDW (11.0-16.0) % Plt Count (160-400) X10*3/uL MPV (9.4-12.3) fL Immature Gran % (Auto) (0.0-0.4) % Neut % (Auto) (45-73) % Lymph % (Auto) (20-40) % [place] % (Auto) (2-11) % Eos % (Auto) (0-4) % Baso % (Auto) (0-2) % Lymph # (Auto) (1.2-4.9) X10*3/uL [place] # (Auto) (0.1-1.2) X10*3/uL Eos # (Auto) (0.0-0.4) X10*3/uL Baso # (Auto) (0.0-0.2) X10*3/uL Abs Immat Gran (auto) (0.00-0.03) X10*3/uL Absolute Neuts (auto) (2.0-8.3) X10*3/uL Absolute Nucleated RBC (0.0-0.012) X10*3/uL Nucleated RBC % (auto) (0.0-0.2) /100WBC PT (10.8-13.0) SEC INR (0.9-1.1) APTT (24.1-38.0) SEC Sodium 137 (135-145) mmol/L Potassium 4.2 (3.3-5.1) mmol/l Chloride 101 (96-108) mmol/L Carbon Dioxide 27 (22-29) mmol/L Anion Gap 13 (12-20) BUN 25 H (9-16) mg/dL Creatinine 1.52 H (0.5-1.4) mg/dL Estim Creat Clear Calc 47.9 Estimated GFR 33 POC Glucose (60-115) mg/dL Random Glucose 240 H D (60-115) mg/dL Lactic Acid (0.5-2.0) mmol/L Calcium 8.9 D (8.4-10.2) mg/dL Magnesium 2.1 (1.6-2.6) mg/dL Total Bilirubin 0.5 (0.0-1.0) mg/dL Direct Bilirubin 0.2 (0.0-0.5) mg/dL AST 15 (5-31) U/L ALT 10 (0-31) U/L Alkaline Phosphatase 72 D (39-117) U/L Total Creatine Kinase 22 L (26-140) U/L Troponin I High Sens (<3.5-17.0) ng/L Total Protein 7.4 (6.5-8.0) g/dL Albumin 3.0 L (3.5-5.0) g/dL Lipase 24 (8-78) U/L TSH (0.32-4.0) uIU/mL Urine Color STRAW Urine Appearance CLOUDY Urine pH 8.0 (5.0-8.0) Ur Specific [place] 1.020 (1.005-1.025) Urine Protein 2+ H (NEG-TRACE) MG/DL Urine Glucose (UA) 500 H (NEG) MG/DL Urine Ketones NEG (NEG) MG/DL Urine Blood 1+ H (NEG) Urine Nitrite NEG (NEG) Ur Leukocyte Esterase 1+ H (NEG) Urine RBC 0-2 (0) /HPF Urine WBC 15-29 H (0-4) /HPF Ur Squamous Epith Cells NONE /LPF Urine Bacteria TRACE /LPF COVID-19 (JENNY) Negative (Negative) COVID-19 Clin Com See Note 02/08/20 02/08/20 Range/Units 10:45 12:00 WBC (4.8-10.8) X10*3/uL RBC (4.20-5.50) X10*6/uL Hgb (12.0-16.0) g/dl Hct (37-47) % MCV (80-98) fL MCH (27.0-33.0) pg MCHC (31.0-35.0) g/dl RDW (11.0-16.0) % Plt Count (160-400) X10*3/uL MPV (9.4-12.3) fL Immature Gran % (Auto) (0.0-0.4) % Neut % (Auto) (45-73) % Lymph % (Auto) (20-40) % [place] % (Auto) (2-11) % Eos % (Auto) (0-4) % Baso % (Auto) (0-2) % Lymph # (Auto) (1.2-4.9) X10*3/uL [place] # (Auto) (0.1-1.2) X10*3/uL Eos # (Auto) (0.0-0.4) X10*3/uL Baso # (Auto) (0.0-0.2) X10*3/uL Abs Immat Gran (auto) (0.00-0.03) X10*3/uL Absolute Neuts (auto) (2.0-8.3) X10*3/uL Absolute Nucleated RBC (0.0-0.012) X10*3/uL Nucleated RBC % (auto) (0.0-0.2) /100WBC PT (10.8-13.0) SEC INR (0.9-1.1) APTT (24.1-38.0) SEC Sodium (135-145) mmol/L Potassium (3.3-5.1) mmol/l Chloride (96-108) mmol/L Carbon Dioxide (22-29) mmol/L Anion Gap (12-20) BUN (9-16) mg/dL Creatinine (0.5-1.4) mg/dL Estim Creat Clear Calc Estimated GFR POC Glucose 293 H (60-115) mg/dL Random Glucose (60-115) mg/dL Lactic Acid (0.5-2.0) mmol/L Calcium (8.4-10.2) mg/dL Magnesium (1.6-2.6) mg/dL Total Bilirubin (0.0-1.0) mg/dL Direct Bilirubin (0.0-0.5) mg/dL AST (5-31) U/L ALT (0-31) U/L Alkaline Phosphatase (39-117) U/L Total Creatine Kinase (26-140) U/L Troponin I High Sens 58.3 H (<3.5-17.0) ng/L Total Protein (6.5-8.0) g/dL Albumin (3.5-5.0) g/dL Lipase (8-78) U/L TSH (0.32-4.0) uIU/mL Urine Color Urine Appearance Urine pH (5.0-8.0) Ur Specific [place] (1.005-1.025) Urine Protein (NEG-TRACE) MG/DL Urine Glucose (UA) (NEG) MG/DL Urine Ketones (NEG) MG/DL Urine Blood (NEG) Urine Nitrite (NEG) Ur Leukocyte Esterase (NEG) Urine RBC (0) /HPF Urine WBC (0-4) /HPF Ur Squamous Epith Cells /LPF Urine Bacteria /LPF COVID-19 (JENNY) (Negative) COVID-19 Clin Com ECG Data Attestation: I personally reviewed and interpreted this ECG as follows: ECG interpretation date: 02/08/20 ECG interpretation time: 07:32 Interpretation: Rate: 54 Rhythm: sinus bradycardia with 1st degree AVB [place]: normal Normal P waves. prolonged RADHA Normal QRS complex. ST T wave : normal no GAYATRI qTC: normal prior studies: no acute ischemia The study has been interpreted contemporaneously by me. . Discharge Plan Discharge Clinical Impression: Hypoglycemia, Hypothermia, Acute UTI Patient Disposition: Home, Self-Care Instructions: Hypoglycemia in a Person with Diabetes (ED), Medication Safety for Older Adults (ED) Additional Instructions: return to ED for any worsening symptoms or concerns on CT scan of chest there were some pulmonary nodules in the lungs recommended [address] chest on CT scan there were small lesions in your liver and pancreas your doctor needs to order MRI to further evaluate them. Prescriptions: New cefuroxime axetil 250 mg tablet 250 mg PO BID 7 Days Qty: 14 RF: 0 No Action atorvastatin [Lipitor] 40 mg Tablet 40 mg PO DAILY RF: 0 clopidogrel 75 mg Tablet 75 mg PO DAILY RF: 0 amlodipine 5 mg Tablet 5 mg PO DAILY RF: 0 clonidine 0.3 mg/24 hr Patch Weekly 1 patch TRANSDERMAL QWEEK RF: 0 losartan 100 mg Tablet 100 mg PO DAILY RF: 0 Inderal XL 120 mg Capsule,Extended Release 24hr 120 mg PO BID RF: 0 Tresiba FlexTouch U-200 200 unit/mL (3 mL) Insulin Pen 45 unit SUBCUT BID RF: 0 Referrals: Kim Mcclelland [Outside] - 2 days Edda Harper NP [Primary Care Provider] - 1 day
[2020-02-08 07:05] LABS: Glucose, Whole Blood 81 mg/dL (60-115)
[2020-02-08 07:07] VITALS: BP 160/100; BP 170/50; PULSE 55; PULSE 57; RESP 16; TEMP 34.6; O2SAT 97; O2SAT 99; BMI 66.4
--- NOTE | 2020-02-08 07:15 | PC.NURSE ---
UPON ARRIVAL WITH [facility] PT WAS AWAKE AND ALERT, ANSWERING QUESTIONS APPROPRIATELY. EMS INSERTED #20 G ANGIO TO RIGHT AC, ADMINISTERED 12.5 G D50. PT HAD JUICE AND 1/2 TUBE ORAL GLUCOSE AT RESIDENCE. PT ASKED IF SHE HAS BEEN SKIPPING MEALS OR TAKING TOO MUCH INSULIN. PT RESPONDS I HAVEN'T TAKEN INSULIN IN A LONG TIME. EMS REPORTS PT HAD A RECENT ADMISSION FOR DIABETIC RELATED PROBLEMS AND STAYED FOR 1 WEEK. PT LIVES AT HOME WITH , WHO HAS DEMENTIA. EMS MENTIONS THAT PT HAS BEEN EXPERIENCING MEMORY PROBLEMS RECENTLY AND HER JUDGEMENT WITH INSULIN ADMINISTRATION WAS POOR. PT'S SON AND DAUGHTER ARE LOCAL AND HAVE BEEN CONTACTED. PT COMPLAINING OF FEELING COLD, UNABLE TO OBTAIN ORAL TEMPERATURE, TOO LOW. RECTAL TEMPERATURE 94.2. UNABLE TO OBTAIN AUTO CUFF PRESSURE, MANUAL WILL BE OBTAINED. PT HAD TO USE BATHROOM IMMEDIATELY UPON ARRIVAL, BED MOVED OUTSIDE OF BATHROOM DOOR. PT IS ASSIST OF 2 WITH TRANSFER FROM BED TO TOILET. UNABLE TO OBTAIN URINE SAMPLE.
[2020-02-08 07:47] LABS: MANUAL DIFF FLAG NO
[2020-02-08 07:49] LABS: Basophils Absolute Auto 0.1 X10*3/uL (0.0-0.2); Basophils Percent Auto 0.7 % (0-2); Eosinophils Absolute Auto 0.4 X10*3/uL (0.0-0.4); Eosinophils Percent Auto 3.9 % (0-4); Hematocrit 41.8 % (37-47); Hemoglobin 13.1 g/dl (12.0-16.0); Imm Gran Abs Auto 0.03 X10*3/uL (0.00-0.03); Imm Gran Pct Auto 0.3 % (0.0-0.4); Lymphocytes Absolute Auto 0.7 X10*3/uL (1.2-4.9); Mean Corpuscular HGB Conc 31.3 g/dl (31.0-35.0); Mean Corpuscular Hemoglobin 27.4 pg (27.0-33.0); Mean Corpuscular Volume 87.4 fL (80-98); Mean Platelet Volume 9.6 fL (9.4-12.3); Monocytes Absolute Auto 0.6 X10*3/uL (0.1-1.2); Monocytes Percent Auto 6.6 % (2-11); Neutrophils Absolute Auto 7.3 X10*3/uL (2.0-8.3); Neutrophils Percent Auto 80.5 % (45-73); Platelet Count 354 X10*3/uL (160-400); Red Blood Count 4.78 X10*6/uL (4.20-5.50); Red Cell Distribution Width 15.1 % (11.0-16.0)
[2020-02-08 07:57] LABS: INTERNATIONAL NORM RATIO 1.1 (0.9-1.1); Prothrombin Time 12.7 SEC (10.8-13.0)
[2020-02-08 08:00] LABS: Partial Thromboplastin Time 40.9 SEC (24.1-38.0)
[2020-02-08 08:07] LABS: Lactic Acid 1.9 mmol/L (0.5-2.0)
[2020-02-08 08:13] LABS: Alanine Aminotransferase 10 U/L (0-31); Alkaline Phosphatase 72 U/L (39-117); Anion Gap 13 (12-20); Aspartate Amino Transferase 15 U/L (5-31); Bilirubin Direct 0.2 mg/dL (0.0-0.5); Bilirubin Total 0.5 mg/dL (0.0-1.0); Blood Urea Nitrogen 25 mg/dL (9-16); Calcium 8.9 mg/dL (8.4-10.2); Carbon Dioxide 27 mmol/L (22-29); Chloride 101 mmol/L (96-108); Creatinine Clr Calc Pharmacy 47.9; Estimated Glomerular Filt Rate 33; Glucose Random 240 mg/dL (60-115); Lipase 24 U/L (8-78); Magnesium 2.1 mg/dL (1.6-2.6); Potassium 4.2 mmol/l (3.3-5.1); Sodium 137 mmol/L (135-145); Total Protein 7.4 g/dL (6.5-8.0)
[2020-02-08] MEDS: cefTRIAXone sodium 1 GM in 0.9 % Sodium Chloride 50 ML IV (08:14)
[2020-02-08 08:30] LABS: Troponin-I High Sensitivity 61.2 ng/L (<3.5-17.0)
[2020-02-08 08:39] LABS: COVID-19 Test Negative (Negative); IDNOW Serial# 9DD0AD1C
[2020-02-08 09:10] VITALS: BP 167/48; PULSE 58; RESP 16; TEMP 36.4; O2SAT 98
[2020-02-08 09:21] LABS: Glucose Urine UA 500 MG/DL (NEG); Leukocyte Esterase Urine 1+ (NEG); Nitrite Urine NEG (NEG); Urine Blood 1+ (NEG); Urine Ketones NEG (NEG); Urine Protein 2+ MG/DL (NEG-TRACE)
[2020-02-08 09:22] LABS: Appearance Urine CLOUDY; Color Urine STRAW
[2020-02-08 09:28] LABS: Bacteria Urine TRACE /LPF; RBC Urine 0-2 /HPF (0)
--- NOTE | 2020-02-08 09:46 | CT_ITS ---
EXAMINATION: CT CHEST WITHOUT CONTRAST CLINICAL INFORMATION: Evaluate for pneumonia COMPARISON: Previous chest x-ray from earlier the same day TECHNIQUE: Multidetector volumetric CT imaging of the chest was done. Axial MIP volume rendering provided. Sagittal and coronal reformatted images were obtained. This CT examination was performed using dose optimization techniques as appropriate, variously including the following: *Automated exposure control *Adjustment of mA and/or kV according to patient size (this includes techniques or standardized protocols for targeted exams where dose is matched to indication/reason for exam; i.e. extremities or head) *Use of iterative reconstruction technique DLP: 287 mGy-cm FINDINGS: LUNGS: There is evidence of emphysema. There is a 3 mm right upper lobe nodule axial image 218 series 5. There are small clustered superior segment left lower lobe nodules, largest measuring 3 mm axial image 216 series 5 and axial 221 series 5. There is a 5 mm right lower lobe nodule axial image 267 series 5. There is a 2 mm peripheral right lower lobe nodule axial image 331 series 5. There is a 2 mm peripheral right lower lobe nodule axial 3:30 series 5. There is a 2 mm peripheral right lower lobe nodule axial image 355 series 5. There is minimal subsegmental atelectasis in the left lower lobe the left lung base adjacent to the diaphragm. The lungs are otherwise clear. No evidence of a pneumonia is seen. MEDIASTINUM: The heart is enlarged. There is coronary artery calcification. There is a small pericardial effusion. There is aortic valve calcification. The ascending thoracic aorta is upper normal in size. The descending thoracic aorta is tortuous. There are small mediastinal lymph nodes. No enlarged lymph nodes are seen. PLEURA: There is no pleural effusion. No pleural mass or thickening. AXILLA: There are small bilateral axillary lymph nodes. No enlarged axillary lymph nodes or chest wall mass is seen. UPPER ABDOMEN: There are gallstones in the gallbladder. There is a 2.2 x 2.7 cm low-attenuation lesion in the tail of the pancreas. There may be of fat stranding adjacent to the tail of the pancreas. There is a 4 cm lesion exophytic to the upper pole of the left kidney. OSSEOUS STRUCTURES: There are degenerative changes of the spine. CT/CT chest wo con IMPRESSION: Emphysema. Pulmonary nodules, largest measuring 5 mm in the right lower lobe. Chest CT follow-up in one year recommended. Subsegmental atelectasis at the left lung base. No evidence of pneumonia. Enlarged heart, coronary artery calcification, and aortic valve calcification. Upper normal-size thoracic aorta. Gallstones. Lesions in the upper pole of the left kidney and pancreas. Follow-up CT or MR imaging with and without contrast to rule out masses recommended.
[2020-02-08 11:26] LABS: Thyroid Stimulating Hormone 2.27 uIU/mL (0.32-4.0)
[2020-02-08 11:39] LABS: Troponin-I High Sensitivity 58.3 ng/L (<3.5-17.0)
--- NOTE | 2020-02-08 12:02 | PC.NURSE ---
attempt to call son for ride. phone is off.
[2020-02-08 12:03] LABS: Glucose, Whole Blood 293 mg/dL (60-115)
--- NOTE | 2020-02-08 12:03 | PC.NURSE ---
attempt to call daughter. phone is off as well.
[2020-02-08 12:12] VITALS: PULSE 60; RESP 16
--- NOTE | 2020-02-08 12:32 | MHC.CM.ED ---
Received case management consult from Dr Lehman. Patient came to ER due to low blood sugar. Spoke with patient's daughter/HCP, Autumn via telephone at [phone]. Patient was at [facility] [place] from 01/22-02/04. Patient was discharged home with resumption of [facility]. Patient again is not taking her medication correctly. Per Autumn, patient and her are moving into assisted living at [facility] this weekend. Patient's son, Marcelino lives locally and will check on patient and . Dr Lehman aware. Patient's son will transport patient home. Continue to monitor for d/c needs. Patient's son, Marcelino can be reached via telephone at [phone].
--- NOTE | 2020-02-08 14:01 | PC.NURSE ---
PT EATING LUNCH AWAITING RIDE FOR DISCHARGE HOME
--- NOTE | 2020-02-08 14:38 | PC.NURSE ---
plan for pt to go home via ambulance d/t family not having access to a vehicle.
[2020-02-08 16:17] LABS: Glucose, Whole Blood 198 mg/dL (60-115)
== END 2020-02-08 16:43 | disposition home or self-care (01) ==
PROVIDERS: Emergency Provider Emergency Medicine; PCP Nurse Practitioner Family
DX: E11.649 Type 2 diabetes mellitus with hypoglycemia without coma (principal); T68.XXXA Hypothermia, initial encounter; X58.XXXA Exposure to other specified factors, initial encounter; N39.0 Urinary tract infection, site not specified; Z20.828 Contact with and (suspected) exposure to other viral communicable diseases; G31.84 Mild cognitive impairment of uncertain or unknown etiology; I10 Essential (primary) hypertension; R91.8 Other nonspecific abnormal finding of lung field; R93.2 Abnormal findings on diagnostic imaging of liver and biliary tract; K76.9 Liver disease, unspecified; Z86.73 Personal history of transient ischemic attack (TIA), and cerebral infarction without residual deficits
CPT/HCPCS: 36415; 71045; 71250; 80048; 80076; 81001; 82550; 82947; 83605; 83690; 83735; 84443; 84484; 85025; 85610; 85730; 87040; 87086; 87635; 93005; 96365; 96375; 99284; 99285; J0696